=== PATIENT | female | born 1935 | race Caucasian/White ===

== ENCOUNTER 2017-07-25 19:17 | Inpatient (IN) | payer OTHER, MEDICARE ==
[~2017-07-25] VITALS: Ht 165.1 cm; Wt 66.3 kg
[~2017-07-25 19:17] MED LIST: BISA10R PR; ENOX40P SQ; HYDR-3535 PO; PERI8.6T PO; Z.0.WALKERFRONT
[2017-07-25 19:31] VITALS: BP 144/68; PULSE 67; RESP 16; TEMP 98.7; O2SAT 99
[2017-07-25] MEDS ORDERED: CALC1TAB12 PO (19:35)
[2017-07-25] MEDS ORDERED: METF500T PO (19:35)
--- NOTE | 2017-07-25 19:59 | PD ---
HPI Chief Complaint: Hip Injury Time Seen by Provider: 19:32 Travel History International Travel<30 days: No Contact w/Intl Traveler<30days: No Traveled to known affect area: No History of Present Illness HPI WHILE WALKING UP STAIRS SHE SLIPPED AND FELL FORWARD ONTO THE STAIRS, HER RIGHT HIP AREA GOT THE BRUNT OF THE LANDING. HAS HAD PAIN ON HER RIGHT HIP EVER SINCE , 02/21, WORSE WITH MOVING IT, UNABLE TO BEAR WEIGHT. NO LOC, NO SYMPTOMS OF DIZZINESS/CP/ABDPAIN/BACKPAIN/NAUSEA PRIOR TO EVENT....PT STATES SHE ESSENTIALLY MISSED STEP...PT WAS ABLE TO CALL 911 ON [address] AND BROUGHT IN BY EMS WHO STARTED IV AND PROVIDED MORPHINE 6MG IV CHART AND RN NOTES REVIEWED PMHX:CHOL, HTN, DM ALL:DENIES PFSH Past Medical History Arthritis: Yes Blood Disorders: No Cancer: No Cardiovascular Problems: No High Cholesterol: Yes Diabetes: No Diminished Hearing: No Endocrine: No Gastrointestinal Disorders: No Genitourinary: No Hepatitis: No Hiatal Hernia: No Hypertension: Yes Immune Disorder: No Implanted Vascular Access Dvce: No Medical other: Yes (HYPERCHOLESTEROLEMIA) Musculoskeletal: Yes (PELVIC FRACTURE 05/18/16) Neurologic: No Psychiatric: No Reproductive: Yes Respiratory: No Thyroid Disease: No ?: Not Past Surgical History Abdominal Surgery: No Cardiac Surgery: No Section: Yes Ear Surgery: No Endocrine Surgery: No Eye Surgery: Yes Genitourinary Surgery: No Gynecologic Surgery: No Neurologic Surgery: No Oral Surgery: No Pacemaker: No Thoracic Surgery: No Other Surgery: Yes Social History Alcohol Use: Yes (1 DAILY) Tobacco Use: No (quit 30 years ago ) Substance Use: No Allergies-Medications (Allergen,Severity, Reaction): Coded Allergies: No Known Allergies (Verified Allergy, Unknown, 07/25/17) Reported Meds & Prescriptions Reported Meds & Active Scripts Active Reported Calcium 500 +D (Calcium Carbonate-Cholecalciferol) 500-400 Mg-Unit Tab 1 Tab PO BID Metformin (Metformin HCl) 500 Mg Tab 500 Mg PO DAILY With a meal Review of Systems Except as stated in HPI: all other systems reviewed are Neg General / Constitutional: No: Fever Eyes: No: Visual changes HENT: No: Headaches Cardiovascular: No: Chest Pain or Discomfort Respiratory: No: Shortness of Breath Gastrointestinal: No: Abdominal Pain Genitourinary: No: Dysuria Musculoskeletal: Positive: Limited ROM, Pain (RT HIP PAIN) Skin: No Rash Neurologic: No: Weakness Psychiatric: No: Depression Endocrine: No: Polydipsia Hematologic/Lymphatic: No: Easy Bruising Physical Exam Narrative GENERAL: SKIN: Warm and dry. HEAD: Atraumatic. Normocephalic. EYES: Pupils equal and round. No scleral icterus. No injection or drainage. ENT: No nasal bleeding or discharge. Mucous membranes pink and moist. NECK: Trachea midline. No JVD. CARDIOVASCULAR: Regular rate and rhythm. RESPIRATORY: No accessory muscle use. Clear to auscultation. Breath sounds equal bilaterally. GASTROINTESTINAL: Abdomen soft, non-tender, nondistended. Hepatic and splenic margins not palpable. MUSCULOSKELETAL: Extremities without clubbing, cyanosis, or edema. No obvious deformities. BUT TTP ALONG LATERAL TROCHANTER AND PROXIMAL FEMUR...KNEE AND TIBFIB COMPLETELY PAIN FREE. NEUROLOGICAL: Awake and alert. No obvious cranial nerve deficits. Motor grossly within normal limits. Five out of 5 muscle strength in the arms and legs. Normal speech. PSYCHIATRIC: Appropriate mood and affect; insight and judgment normal. Data Data Last Documented VS Vital Signs Date Time Temp Pulse Resp B/P (MAP) Pulse Ox O2 Delivery O2 Flow Rate FiO2 07/25/17 19:31 98.7 67 16 144/68 (93) 99 Orders Orders Hip, Uni(Ap&Lat) W Ap Pelvis (07/25/17 19:51) Electrocardiogram (07/25/17 20:43) Complete Blood Count With Diff (07/25/17 20:43) Comprehensive Metabolic Panel (07/25/17 20:43) Prothrombin Time / Inr (Pt) (07/25/17 20:43) Act Partial Throm Time (Ptt) (07/25/17 20:43) Urinalysis - C+S If Indicated (07/25/17 20:43) Iv Access Insert/Monitor (07/25/17 20:43) Urinary Catheter Insert/Apply (07/25/17 20:43) Oximetry (07/25/17 20:43) Ecg Monitoring (07/25/17 20:43) Sodium Chloride 0.9% Flush (Ns Flush) (07/25/17 20:45) Admit Order (Ed Use Only) (07/25/17 20:57) [facility] Medical Decision Making Medical Screen Exam Complete: Yes Emergency Medical Condition: Yes Medical Record Reviewed: Yes Differential Diagnosis HIP CONTUSION V HIP FX V HIP DISLOCATION Narrative Course xray revealed rt intertrochanteric fracture which will require repair. Diagnosis Primary Impression: Intertrochanteric fracture of right hip Qualified Codes: S72.144A - Nondisplaced intertrochanteric fracture of right femur, initial encounter for closed fracture Jose Mchugh MD Jul 25, 2017 19:59
--- NOTE | 2017-07-25 20:42 | RADRPT ---
EXAM DATE/TIME: 07/25/2017 20:08 [place] COMPARISON: No previous studies available for comparison. INDICATIONS : Fall. Right hip pain. MEDICAL HISTORY : None. SURGICAL HISTORY : None. ENCOUNTER: Initial ACUITY: 1 day PAIN SCORE: 9/10 LOCATION: Right hip FINDINGS: There is a mildly displaced intertrochanteric fracture proximal right femur. No dislocation. Bones os teopenic. CONCLUSION: 1. Mildly displaced intertrochanteric fracture proximal right femur. Ortiz Gordon MD on July 25, 2017 at 20:40 Board Certified Radiologist. This report was verified electronically.
[2017-07-25] MEDS ORDERED: SODIUM CHLORIDE 0.9% FLUSH 10 ML FLUSH IVF PRN (20:45)
[2017-07-25 22:00] VITALS: BP 140/81; PULSE 58; RESP 16; O2SAT 95
[2017-07-25 22:07] LABS: AUTOMATED NEUTROPHIL # 4.4 TH/MM3 (1.8-7.7); BASOPHIL # 0.1 TH/MM3 (0-0.2); BASOPHIL % 1.1 % (0.0-2.0); EOSINOPHIL # 0.1 TH/MM3 (0-0.4); EOSINOPHIL % 1.8 % (0.0-4.0); HEMATOCRIT 35.4 % (35.0-46.0); HEMO FLAGS DIFF FINAL; LYMPH % 20.1 % (9.0-44.0); LYMPHOCYTE # 1.3 TH/MM3 (1.0-4.8); MEAN CELL VOLUME 87.3 FL (80.0-100.0); MEAN CORPUSCULAR HEMOGLOBIN 29.5 PG (27.0-34.0); MEAN CORPUSCULAR HGB CONC 33.8 % (32.0-36.0); MONO % 6.9 % (0.0-8.0); NEUT % 70.1 % (16.0-70.0); PLATELET COUNT 254 TH/MM3 (150-450); RED BLOOD COUNT 4.05 MIL/MM3 (4.00-5.30); RED CELL DISTRIBUTION WIDTH 13.9 % (11.6-17.2); WHITE BLOOD COUNT 6.3 TH/MM3 (4.0-11.0)
[2017-07-25 22:16] LABS: PROTHROMBIN TIME - PATIENT 10.5 SEC (9.8-11.6)
[2017-07-25] MEDS ORDERED: ACETAMINOPHEN 325 MG TAB PO PRN (22:30)
[2017-07-25] MEDS ORDERED: NALOXONE HCL 0.4 MG/ML AMP IV PUSH PRN (22:30)
[2017-07-25] MEDS ORDERED: SODIUM CHLORIDE 0.9% FLUSH 10 ML FLUSH IV FLUSH PRN (22:30)
[2017-07-25 22:34] LABS: ALKALINE PHOSPHATASE 53 U/L (45-117); TOTAL BILIRUBIN ADULT 0.4 MG/DL (0.2-1.0)
[2017-07-25 22:42] LABS: ALT (GPT) 18 U/L (10-53); ANION GAP 7 MEQ/L (5-15); AST (GOT) 19 U/L (15-37); BICARBONATE 25.8 MEQ/L (21.0-32.0); BLOOD UREA NITROGEN 16 MG/DL (7-18); CHLORIDE 102 MEQ/L (98-107); GLOMERULAR FILTRATION RATE 67 ML/MIN (>89); SODIUM (NA) 135 MEQ/L (136-145)
[2017-07-25 22:45] LABS: POTASSIUM 4.1 MEQ/L (3.5-5.1)
[2017-07-25] MEDS ORDERED: GLUCAGON 1 MG/ML VIAL OTHER PRN (22:45)
[2017-07-25] MEDS ORDERED: DEXTROSE 50% IN WATER 50 ML VIAL(D50) IV PUSH PRN (22:45)
--- NOTE | 2017-07-25 23:19 | HHI.HP ---
[facility] Service [facility] Primary Care Physician Lang Freire MD Admission Diagnosis RIGHT INTERTROCHANTERIC FRACTURE Diagnoses: Travel History International Travel<30 Days: No Contact w/Intl Traveler <30 Da: No Traveled to Known Affected Are: No History of Present Illness 82-year-old female with a past medical history significant for type 2 diabetes mellitus presents to the emergency department after sustaining a fall. The patient reports that she was carrying groceries when she tripped on a step going in her front door and fell onto her right hip. She denies any head trauma or loss of consciousness. Her pain is currently well controlled. She has no other complaints at this time. Review of Systems Denies fever or chills Denies blurry vision, otorrhea, rhinorrhea Denies sore throat and cough No chest pain, palpitations, shortness of breath No abdominal pain Denies constipation/diarrhea/nausea/vomiting Denies muscle pain/weakness No rashes Past Family Social History Past Medical History Type 2 diabetes mellitus Past Surgical History Right knee 2 Reported Medications Reported Meds & Active Scripts Active Reported Calcium 500 +D (Calcium Carbonate-Cholecalciferol) 500-400 Mg-Unit Tab 1 Tab PO BID Metformin (Metformin HCl) 500 Mg Tab 500 Mg PO DAILY With a meal Allergies: Coded Allergies: No Known Allergies (Verified Allergy, Unknown, 07/25/17) Family History Father with diabetes mellitus. Social History Remote history of smoking. Drinks one cocktail per day. Denies illicit drugs. Physical Exam Vital Signs Vital Signs Date Time Temp Pulse Resp B/P (MAP) Pulse Ox O2 Delivery O2 Flow Rate FiO2 07/25/17 22:00 58 16 140/81 (100) 95 Nasal Cannula 2.00 07/25/17 19:31 98.7 67 16 144/68 (93) 99 Physical Exam GENERAL: female lying in bed SKIN: No rashes, ecchymoses or lesions. Cool and dry. HEAD: Atraumatic. Normocephalic. No temporal or scalp tenderness. EYES: Pupils equal round and reactive. Extraocular motions intact. No scleral icterus. No injection or drainage. ENT: Nose without bleeding, purulent drainage or septal hematoma. Throat without erythema, tonsillar hypertrophy or exudate. Uvula midline. Airway patent. NECK: Trachea midline. No JVD or lymphadenopathy. Supple, nontender, no meningeal signs. CARDIOVASCULAR: Regular rate and rhythm without murmurs, gallops, or rubs. RESPIRATORY: Clear to auscultation. Breath sounds equal bilaterally. No wheezes , rales, or rhonchi. GASTROINTESTINAL: Abdomen soft, non-tender, nondistended. No hepato-splenomegaly , or palpable masses. No guarding. MUSCULOSKELETAL: Extremities without clubbing, cyanosis, or edema. No joint tenderness, effusion, or edema noted. No calf tenderness. Bilateral lower extremities neurovascularly intact. NEUROLOGICAL: Awake and alert. Cranial nerves II through XII intact. Motor and sensory grossly within normal limits. Normal speech. Laboratory Laboratory Tests Test 07/25/17 21:00 White Blood Count 6.3 Red Blood Count 4.05 Hemoglobin 12.0 Hematocrit 35.4 Mean Corpuscular Volume 87.3 Mean Corpuscular Hemoglobin 29.5 Mean Corpuscular Hemoglobin Concent 33.8 Red Cell Distribution Width 13.9 Platelet Count 254 Mean Platelet Volume 8.7 Neutrophils (%) (Auto) 70.1 Lymphocytes (%) (Auto) 20.1 Monocytes (%) (Auto) 6.9 Eosinophils (%) (Auto) 1.8 Basophils (%) (Auto) 1.1 Neutrophils # (Auto) 4.4 Lymphocytes # (Auto) 1.3 Monocytes # (Auto) 0.4 Eosinophils # (Auto) 0.1 Basophils # (Auto) 0.1 CBC Comment DIFF FINAL Differential Comment Prothrombin Time 10.5 Prothromb Time International Ratio 1.0 Activated Partial Thromboplast Time 28.0 Blood Urea Nitrogen 16 Creatinine 0.82 Random Glucose 92 Total Protein 6.7 Albumin 3.5 Calcium Level 8.5 Alkaline Phosphatase 53 Aspartate Amino Transf (AST/SGOT) 19 Alanine Aminotransferase (ALT/SGPT) 18 Total Bilirubin 0.4 Sodium Level 135 Potassium Level 4.1 Chloride Level 102 Carbon Dioxide Level 25.8 Anion Gap 7 Estimat Glomerular Filtration Rate 67 Result Diagram: 07/25/17209907/25/172099 Caprini VTE Risk Assessment Caprini VTE Risk Assessment: Mod/High Risk (score >= 2) Caprini Risk Assessment Model Point Value = 1 Point Value = 2 Point Value = 3 Point Value = 5 Age 41-60 Minor surgery BMI > 25 kg/m2 Swollen legs Varicose veins or History of unexplained or recurrent spontaneous Oral contraceptives or hormone replacement Sepsis (< 1 month) Serious lung disease, including pneumonia (< 1 month) Abnormal pulmonary function Acute myocardial infarction Congestive heart failure (< 1 month) History of inflammatory bowel disease Medical patient at bed rest Age 61-74 Arthroscopic surgery Major open surgery (> 45 min) Laparoscopic surgery (> 45 min) Malignancy Confined to bed (> 72 hours) Immobilizing plaster cast Central venous access Age >= 75 History of VTE Family history of VTE Factor V Leiden Prothrombin [id number] Lupus anticoagulant Anticardiolipin antibodies Elevated serum homocysteine Heparin-induced thrombocytopenia Other congenital or acquired thrombophilia Stroke (< 1 month) Elective arthroplasty Hip, pelvis, or leg fracture Acute spinal cord injury (< 1 month) Prophylaxis Regimen Total Risk Factor Score Risk Level Prophylaxis Regimen 0-1 Low Early ambulation 2 Moderate Order ONE of the following: *Sequential Compression Device (SCD) *Heparin 5000 units SQ BID 3-4 Higher Order ONE of the following medications: *Heparin 5000 units SQ TID *Enoxaparin/Lovenox 40 mg SQ daily (WT < 150 kg, CrCl > 30 mL/min) *Enoxaparin/Lovenox 30 mg SQ daily (WT < 150 kg, CrCl > 10-29 mL/min) *Enoxaparin/Lovenox 30 mg SQ BID (WT < 150 kg, CrCl > 30 mL/min) AND/OR *Sequential Compression Device (SCD) 5 or more Highest Order ONE of the following medications: *Heparin 5000 units SQ TID (Preferred with Epidurals) *Enoxaparin/Lovenox 40 mg SQ daily (WT < 150 kg, CrCl > 30 mL/min) *Enoxaparin/Lovenox 30 mg SQ daily (WT < 150 kg, CrCl > 10-29 mL/min) *Enoxaparin/Lovenox 30 mg SQ BID (WT < 150 kg, CrCl > 30 mL/min) AND *Sequential Compression Device (SCD) Assessment and Plan Assessment and Plan Assessment/plan: 1. Hip fracture X-ray significant for mildly displaced intertrochanteric fracture proximal right femur Orthopedic surgery consulted, appreciate recommendations Nothing by mouth in anticipation of operative intervention 2. Type 2 diabetes mellitus Holding home metformin SSI Monitor blood glucose FEN NPO NS at 75 cc/hr Electrolytes: monitor and replete prn Holding pharmacologic anticoagulation in anticipation of operative intervention tomorrow Case discussed with ER physician at length Physician Certification 2 Midnight Certification Type: Admission for Inpatient Services Order for Inpatient Services The services are ordered in accordance with Medicare regulations or non- Medicare payer requirements, as applicable. In the case of services not specified as inpatient-only, they are appropriately provided as inpatient services in accordance with the 2-midnight benchmark. Estimated LOS (days): 2 2 days is the estimated time the patient will need to remain in the hospital, assuming treatment plan goals are met and no additional complications. Post-Hospital Plan: Not yet determined Dahlia Marin MD Jul 25, 2017 23:19
[2017-07-26] VITALS (7 sets, daily range): BP systolic 118–159; BP diastolic 55–72; PULSE 66–70; RESP 17–18; TEMP 97.1–99; O2SAT 91–95
[2017-07-26] MEDS ORDERED: POVIDONE IODINE 5% (ANTISEPSIS KIT) 4 APPLICATIONS EACH NARE PRN (00:30)
[2017-07-26] MEDS ORDERED: LACTATED RINGER'S 1000 ML IV PRN (00:30)
[2017-07-26] MEDS ORDERED: INSULIN HUMAN REGULAR 1,000 UNITS/10 ML VIAL SQ PRN (00:30)
[2017-07-26] MEDS ORDERED: SODIUM CHLORID 0.9% 500 ML IV PRN (00:30)
[2017-07-26] MEDS ORDERED: METOPROLOL TARTRATE 25 MG TAB PO PRN (00:30)
[2017-07-26] MEDS ORDERED: CHLORHEXIDINE GLUCONATE 2 % 1 PACK (2 CLOTHS) TOPICAL PRN (00:30)
[2017-07-26] MEDS: MORPHINE SULFATE 2 MG/ML INJ IV PUSH PRN ×6 (01:35→21:00)
[2017-07-26] MEDS: SODIUM CHLOR 0.9% 1000 ML INJ 1,000 ML IV SCH ×2 (01:39→13:41)
[2017-07-26] MEDS: ONDANSETRON HCL 4 MG/2 ML VIAL IVP PRN ×2 (02:24→10:03)
[2017-07-26] MEDS: INSULIN ASPART SUPPLEMENTAL SCALE SQ SCH ×4 (08:00→20:59)
[2017-07-26] MEDS: SODIUM CHLORIDE 0.9% FLUSH 10 ML FLUSH IV FLUSH SCH ×2 (08:26→20:58)
[2017-07-26 08:38] LABS: AUTOMATED NEUTROPHIL # 5.8 TH/MM3 (1.8-7.7); BASOPHIL % 0.4 % (0.0-2.0); EOSINOPHIL % 0.6 % (0.0-4.0); HEMATOCRIT 34.6 % (35.0-46.0); HEMO FLAGS DIFF FINAL; LYMPH % 11.8 % (9.0-44.0); LYMPHOCYTE # 0.9 TH/MM3 (1.0-4.8); MEAN CELL VOLUME 86.6 FL (80.0-100.0); MEAN CORPUSCULAR HEMOGLOBIN 29.6 PG (27.0-34.0); MEAN CORPUSCULAR HGB CONC 34.1 % (32.0-36.0); NEUT % 80.2 % (16.0-70.0); PLATELET COUNT 260 TH/MM3 (150-450); RED BLOOD COUNT 3.99 MIL/MM3 (4.00-5.30); RED CELL DISTRIBUTION WIDTH 13.8 % (11.6-17.2); WHITE BLOOD COUNT 7.2 TH/MM3 (4.0-11.0)
[2017-07-26 09:03] LABS: BICARBONATE 25.9 MEQ/L (21.0-32.0)
--- NOTE | 2017-07-26 10:43 | PD.CONS ---
HPI Service Orthopedic Surgeons Consult Requested By Reason for Consult Right intertrochanteric hip fracture Primary Care Physician Lang Freire MD Admission Diagnosis RIGHT INTERTROCHANTERIC FRACTURE Diagnoses: Chief Complaint: Right hip pain History of Present Illness Patient is an 82-year-old female who presented to the emergency department after a slip and fall. Patient denies any loss of consciousness or head injury. Patient reports right hip pain but otherwise denies other extremity injury. Review of Systems Constitutional: DENIES: Fever Endocrine: DENIES: Polyuria Eyes: DENIES: Blurred vision Ears, nose, mouth, throat: DENIES: Throat pain Respiratory: DENIES: Cough Cardiovascular: DENIES: Chest pain Gastrointestinal: DENIES: Abdominal pain Genitourinary: DENIES: Urinary incontinence Musculoskeletal: COMPLAINS OF: Joint pain, Muscle aches Integumentary: DENIES: Rash Hematologic/lymphatic: DENIES: Bruising Immunologic/allergic: DENIES: Eczema Neurologic: DENIES: Abnormal gait Psychiatric: DENIES: Anxiety Past Family Social History Past Medical History Type 2 diabetes mellitus Past Surgical History Right knee 2 Reported Medications Patient cannot recall exact name but something for diabetes Allergies: Coded Allergies: No Known Allergies (Verified Allergy, Unknown, 07/25/17) Active Ordered Medications Current Medications Medications (Trade) Dose Ordered Sig/David Route Start Time Stop Time Status Last Admin (NS Flush) 2 ml UNSCH PRN IV FLUSH 07/25/17 22:30 (NS Flush) 2 ml BID IV FLUSH 07/26/17 09:00 (Tylenol) 650 mg Q4H PRN PO 07/25/17 22:30 (Zofran Inj) 4 mg Q6H PRN IVP 07/25/17 22:30 07/26/17 10:03 (Narcan Inj) 0.4 mg UNSCH PRN IV PUSH 07/25/17 22:30 (Morphine Inj) 2 mg Q3H PRN IV PUSH 07/25/17 22:30 07/26/17 09:52 (D50w (Vial) Inj) 50 ml UNSCH PRN IV PUSH 07/25/17 22:45 (Glucagon Inj) 1 mg UNSCH PRN OTHER 07/25/17 22:45 (NovoLOG SUPPLEMENTAL SCALE) 1 ACHS SLIDING SCALE SQ 07/26/17 08:00 Sodium Chloride 1,000 ml @ 75 mls/hr [id number] IV 07/25/17 23:30 07/26/17 01:39 Lactated Ringer's 1,000 ml @ 30 mls/hr Q24H PRN IV 07/26/17 00:30 07/29/17 00:29 Sodium Chloride 500 ml @ 30 mls/hr [id number] PRN IV 07/26/17 00:30 07/29/17 00:29 (Lopressor) 25 mg CLINICAL RESEARCH TECHNICIAN PRN PO 07/26/17 00:30 07/29/17 00:29 (Betadine 5% Antisepsis Kit) 1 applic CLINICAL RESEARCH TECHNICIAN PRN EACH NARE 07/26/17 00:30 07/29/17 00:29 (Chlorhexidine 2% Cloth) 3 pack CLINICAL RESEARCH TECHNICIAN PRN TOPICAL 07/26/17 00:30 07/29/17 00:29 (NovoLIN R INJ) See Protocol Table ... CLINICAL RESEARCH TECHNICIAN PRN SQ 07/26/17 00:30 07/29/17 00:29 Reported Meds & Active Scripts Active Reported Calcium 500 +D (Calcium Carbonate-Cholecalciferol) 500-400 Mg-Unit Tab 1 Tab PO BID Metformin (Metformin HCl) 500 Mg Tab 500 Mg PO DAILY With a meal Family History Father with diabetes mellitus. Social History Remote history of smoking. Drinks one cocktail per day. Denies illicit drugs. Physical Exam Vital Signs Vital Signs Date Time Temp Pulse Resp B/P (MAP) Pulse Ox O2 Delivery O2 Flow Rate FiO2 07/26/17 09:57 18 07/26/17 08:00 99.0 67 18 144/63 (90) 94 07/26/17 04:00 98.1 66 18 144/67 (92) 95 07/26/17 00:00 97.1 70 18 159/72 (101) 95 07/25/17 22:00 58 16 140/81 (100) 95 Nasal Cannula 2.00 07/25/17 19:31 98.7 67 16 144/68 (93) 99 Physical Exam Awake, alert, no acute distress Normocephalic Pupils equal Moist mucous membranes No JVD Nonlabored respirations Regular rate Soft nontender abdomen Right lower extremity: Mild tenderness to palpation about the hip with positive logroll. Unable to assess range of motion due to pain. Patient is neurovascular intact distally, positive dorsiflexion, plantar flexion, EHL and FHL. Sensation intact to light touch. Dorsalis pedis pulses palpable. Bilateral upper extremities and left lower extremity: Without tenderness to palpation or deformities. Full active range of motion and strength. Sensation intact. Radial and dorsalis pedis pulses palpable No rash Normal affect Laboratory Laboratory Tests Test 07/25/17 21:00 07/26/17 07:52 White Blood Count 6.3 7.2 Red Blood Count 4.05 3.99 Hemoglobin 12.0 11.8 Hematocrit 35.4 34.6 Mean Corpuscular Volume 87.3 86.6 Mean Corpuscular Hemoglobin 29.5 29.6 Mean Corpuscular Hemoglobin Concent 33.8 34.1 Red Cell Distribution Width 13.9 13.8 Platelet Count 254 260 Mean Platelet Volume 8.7 7.9 Neutrophils (%) (Auto) 70.1 80.2 Lymphocytes (%) (Auto) 20.1 11.8 Monocytes (%) (Auto) 6.9 7.0 Eosinophils (%) (Auto) 1.8 0.6 Basophils (%) (Auto) 1.1 0.4 Neutrophils # (Auto) 4.4 5.8 Lymphocytes # (Auto) 1.3 0.9 Monocytes # (Auto) 0.4 0.5 Eosinophils # (Auto) 0.1 0.0 Basophils # (Auto) 0.1 0.0 CBC Comment DIFF FINAL DIFF FINAL Differential Comment Prothrombin Time 10.5 Prothromb Time International Ratio 1.0 Activated Partial Thromboplast Time 28.0 Blood Urea Nitrogen 16 14 Creatinine 0.82 0.72 Random Glucose 92 113 Total Protein 6.7 Albumin 3.5 Calcium Level 8.5 8.5 Alkaline Phosphatase 53 Aspartate Amino Transf (AST/SGOT) 19 Alanine Aminotransferase (ALT/SGPT) 18 Total Bilirubin 0.4 Sodium Level 135 132 Potassium Level 4.1 4.0 Chloride Level 102 99 Carbon Dioxide Level 25.8 25.9 Anion Gap 7 7 Estimat Glomerular Filtration Rate 67 78 Result Diagram: 07/26/17 0752 07/26/17 0752 Imaging Right hip and pelvis radiographs demonstrate a mildly displaced intertrochanteric femur fracture. Assessment & Plan Assessment and Plan Patient is an 82-year-old female who presents after mechanical fall with right intertrochanteric femur fracture Options of management were discussed with the patient including nonoperative versus operative management. Given she has a hip fracture, I recommended operative intervention in the form of right intramedullary nail. Risks of surgery including but not limited to: Infection, malunion or nonunion, hardware malposition or failure, prominent hardware, possible neurovascular injury, possible need for further surgery, and other unforeseen complications were all discussed with the patient. Postoperative course were discussed with the patient including the likelihood that she could be weightbearing as tolerated with a walker immediately after surgery. She would be on anticoagulation for at least 2 weeks postop. At this time the patient has consented to the above- mentioned procedure. Patient is nothing by mouth for surgery later today. Amee Gotti MD Jul 26, 2017 10:43
--- NOTE | 2017-07-26 11:27 | HHI.PR ---
Subjective Remarks Follow-up right hip fracture/mechanical fall 07/26/17-patient seen and examined, complains of right hip pain. Currently nothing by mouth any possible repair today by orthopedic surgery Objective Vitals Vital Signs Date Time Temp Pulse Resp B/P (MAP) Pulse Ox O2 Delivery O2 Flow Rate FiO2 07/26/17 09:57 18 07/26/17 08:00 99.0 67 18 144/63 (90) 94 07/26/17 04:00 98.1 66 18 144/67 (92) 95 07/26/17 00:00 97.1 70 18 159/72 (101) 95 07/25/17 22:00 58 16 140/81 (100) 95 Nasal Cannula 2.00 07/25/17 19:31 98.7 67 16 144/68 (93) 99 I/O 07/25/17 07/25/17 07/25/17 07/26/17 07/26/17 07/26/17 07:00 15:00 23:00 07:00 15:00 23:00 Intake Total 355 ml Balance 355 ml Intake IV Total 355 ml Result Diagram: 07/26/17 0752 07/26/17 0752 Imaging Last Impressions Hip and Pelvis X-Ray 07/25/171950 Signed Impressions: Service Date/Time: Tuesday, July 25, 2017 20:08 - CONCLUSION: 1. Mildly displaced intertrochanteric fracture proximal right femur. Ortiz Gordon MD Objective Remarks GENERAL: NAD SKIN: Warm and dry. HEAD: Normocephalic. EYES: No scleral icterus. No injection or drainage. NECK: Supple, trachea midline. No JVD or lymphadenopathy. CARDIOVASCULAR: Regular rate and rhythm without murmurs, gallops, or rubs. RESPIRATORY: Breath sounds equal bilaterally. No accessory muscle use. GASTROINTESTINAL: Abdomen soft, non-tender, nondistended. MUSCULOSKELETAL: No cyanosis, or edema. Right Hip TTP BACK: Nontender without obvious deformity. No CVA tenderness. A/P Problem List: (1) Fracture of left inferior pubic ramus ICD Code: S32.592A - Other specified fracture of left pubis, initial encounter for closed fracture Status: Acute Assessment and Plan 82-year-old female with 1. Right Hip fracture X-ray significant for mildly displaced intertrochanteric fracture proximal right femur Orthopedic surgery consulted, appreciate recommendations Plan for open reduction internal fixation today Continue IV fluid hydration, parenteral pain management accordingly DVT prophylaxis per orthopedic postprocedure PT consult to treat and eval 2. Type 2 diabetes mellitus Holding home metformin Continue with SSI Zachary Blackburn MD Jul 26, 2017 11:27
--- NOTE | 2017-07-26 12:08 | EKG ---
Date Performed: 07/25/2017 Time Performed: 21:29:03 PTAGE: 82 years EKG: Normal Sinus rhythm Nonspecific T-wave abnormality PVCs Poor R-wave progression Possible anteroseptal AR vs lead placeme nt ABNORMAL ECG Compared to PREVIOUS TRACING , the PVCs are new. There is a blocked R-wave in lead V2 but this could be lead placement. PREVIOUS TRACIN01/12/2014 13.35 DOCTOR: Ike Barraza Interpretating Date/Time 07/26/2017 12:07:37
--- NOTE | 2017-07-26 16:02 | PD.OP ---
cc: Amee Gotti MD Operative Report Closed left displaced olecranon fracture Postoperative Diagnosis: Same Procedure: Open reduction internal fixation left olecranon fracture Surgeon: Amee Gotti Tunnel Man(s): None Operation and Findings: Anesthesia: Mac with nerve block Estimated blood loss: 50 cc Complications: None Specimens: None Indications for procedure: Patient is an 82-year-old female presents to my clinic one week after a slip and fall with left elbow pain. Patient was found to have an olecranon fracture at [place] emergency department splinted and discharged. Patient followed up in my clinic with a completely displaced olecranon fracture. Options of management were discussed with the patient. I recommended operative intervention in the form of open reduction internal fixation of her left olecranon fracture. Risks of surgery including but not limited to: Infection, nonunion or malunion, hardware malposition or failure, elbow stiffness and pain, neurovascular injury, and other unforeseen complications were all discussed with the patient. At this time she consented to procedure. I did discuss with her my concern given she is on oral chemotherapy that she is at significantly higher risk for nonunion and/or infection. Description of procedure: Patient was brought back to the operating room placed supine on operating table. MAC anesthesia was performed along with a nerve block. Patient was turned to a lateral position on a beanbag with all bony prominences well-padded. Patient was prepped and draped in standard sterile fashion. Preoperative antibiotics were given in the form of Ancef and vancomycin. A timeout was performed to identify the correct patient, side, site and procedure to be performed. A posterior based incision over the olecranon was performed with sharp dissection through the skin and subcutaneous tissue down to bone. Immediately hematoma was encountered with a significant gap between the 2 fracture fragments. The fracture fragments were thoroughly cleaned from hematoma and reduced with the help of a K wire. A Synthes locking olecranon plate was then placed and reduction was verified under AP and lateral fluoroscopy. Proximal and distal locking and nonlocking screws were then placed. Final radiographs demonstrated acceptable fracture reduction and hardware in good position without evidence of penetration of the joint line. Patient had full passive range of motion of the elbow without crepitus. The wound was thoroughly irrigated with normal saline laden with gentamicin. 1 g of vancomycin powder was then placed and the wound given my concern for infection with her oral chemotherapy. Patient was then closed with antibiotic coated Vicryl and nylon suture. Patient was placed in a posterior splint, well- padded. Patient was then awoken from her anesthesia without complication and transferred to the postoperative room. Disposition: Patient will be nonweightbearing to left upper extremity in a splint and sling. I have asked patient follow-up in approximately 10-14 days at which point likely she will be taken out of the splint and allowed to start gentle range of motion. Amee Gotti MD Jul 26, 2017 16:02
[2017-07-26] MEDS ORDERED: HYDR-4107 PO (16:06)
[2017-07-26] MEDS ORDERED: diphenhydrAMINE HCL 25 MG CAP PO PRN (16:15)
[2017-07-26] MEDS ORDERED: ACETAMINOPHEN/HYDROcodone 325 MG/5 MG TAB PO PRN ×2 (16:15)
[2017-07-26] MEDS ORDERED: Post-op Orders (for Pharmacy) XX ONE (16:15)
[2017-07-26] MEDS ORDERED: MORPHINE SULFATE 8 MG/ML INJ IV PUSH PRN (16:15)
[2017-07-26] MEDS ORDERED: SODIUM CHLORIDE 0.9% FLUSH 10 ML FLUSH IV FLUSH PRN (16:15)
[2017-07-26] MEDS ORDERED: BISACODYL 10 MG SUPP RECTAL PRN (16:15)
[2017-07-26] MEDS ORDERED: MAGNESIUM HYDROXIDE SUSP 30 ML CUP PO PRN (16:15)
[2017-07-26] MEDS ORDERED: SENNOSIDES 8.6 MG TAB PO PRN (16:15)
[2017-07-26] MEDS ORDERED: ONDANSETRON HCL 4 MG/2 ML VIAL IVP PRN (16:15)
[2017-07-26] MEDS ORDERED: LACTULOSE SYRUP 20 GM/30 ML CUP PO PRN (16:15)
[2017-07-26] MEDS ORDERED: DOCUSATE SODIUM 50 MG/SENNA 8.6 MG TAB PO SCH (21:00)
[2017-07-26] MEDS ORDERED: SODIUM CHLORIDE 0.9% FLUSH 10 ML FLUSH IV FLUSH SCH (21:00)
[2017-07-27] MEDS: SODIUM CHLOR 0.9% 1000 ML INJ 1,000 ML IV SCH ×2 (02:35→15:30)
[2017-07-27 03:30] VITALS: BP 138/62; PULSE 69; RESP 18; TEMP 98; O2SAT 93
[2017-07-27] MEDS: MORPHINE SULFATE 2 MG/ML INJ IV PUSH PRN (03:34)
--- NOTE | 2017-07-27 06:50 | PD.ORT.PN ---
Subjective Subjective Remarks Fell Tuesday night when coming back into house after coming back from [facility] with groceries in hand. Fell and had right hip pain. Was unable to ambulate. Objective Vitals Vital Signs Date Time Temp Pulse Resp B/P (MAP) Pulse Ox O2 Delivery O2 Flow Rate FiO2 07/27/17 03:30 98.0 69 18 138/62 (87) 93 07/26/17 23:25 98.6 68 17 135/60 (85) 93 07/26/17 19:23 98.5 68 17 141/61 (87) 93 07/26/17 17:00 18 07/26/17 16:01 98.8 68 18 118/55 (76) 91 07/26/17 11:58 98.7 67 18 152/64 (93) 94 07/26/17 08:00 99.0 67 18 144/63 (90) 94 I/O 07/26/17 07/26/17 07/26/17 07/27/17 07/27/17 07/27/17 07:00 15:00 23:00 07:00 15:00 23:00 Intake Total 355 ml 0 ml 240 ml Output Total 800 ml 300 ml Balance 355 ml -800 ml -60 ml Intake Oral 0 ml 240 ml IV Total 355 ml Output Urine Total 800 ml 300 ml # Bowel Movements 0 0 Result Diagram: 07/26/17 0752 07/26/17 0752 Imaging Last 72 hours Impressions Hip and Pelvis X-Ray 07/25/171950 Signed Impressions: Service Date/Time: Tuesday, July 25, 2017 20:08 - CONCLUSION: 1. Mildly displaced intertrochanteric fracture proximal right femur. Ortiz Gordon MD Objective Remarks Bilateral upper extremities: Full range of motion neurovascular intact Left lower extremity: Full range of motion and neurovascularly intact. Right lower extremity: Pain to palpation of hip and any movement. She has mild tenderness to palpation of her knee. Distally she has intact sensation good capillary refills. She has active dorsiflexion plantar flexion of foot Assessment & Plan Assessment and Plan Right intertrochanteric femur fracture Surgery this morning with Dr. Lyles Nothing by mouth Sign consents Twin Cazares Jr. Jul 27, 2017 06:50
[2017-07-27] MEDS ORDERED: VANCOMYCIN HCL 1000 MG VIAL ONE (07:08)
[2017-07-27] MEDS ORDERED: SODIUM CHLOR 0.9% 250 ML INJ 250 ML ONE (07:08)
[2017-07-27] MEDS ORDERED: BUPIVACAINE/EPINEPHRINE 0.25% PF 10 ML VIAL ONE (07:08)
[2017-07-27] MEDS ORDERED: GENTAMICIN SULFATE 80 MG/2 ML VIAL ONE (07:10)
--- NOTE | 2017-07-27 07:22 | PD.OP ---
cc: David Lyles MD Operative Report Date of Surgery: Jul 27, 2017 Preoperative Diagnosis: Right hip intertrochanteric fracture Postoperative Diagnosis: Procedure: Right hip reduction and intramedullary nail fixation Anesthesia: Gen. Surgeon: David Lyles Electrician Station Assistant(s): SYLVIE Duong PA-C The surgical procedure was assisted by my physician certified surgical tech/first assistant. My P.A. presence was necessary throughout this case for the manipulation and positioning of the surgical extremity. My P.A. was assisting me throughout the duration of this procedure. The skill set of a physician certified surgical tech/first assistant was medically necessary to complete this procedure. During the surgical case the surgical processor was working at the back table and the physician certified surgical tech/first assistant was directly assisting me. Operation and Findings: Implants used: []mm Synthes TFNA short troch nail Plan of activity: Weight-bear as tolerated Patient was seen and evaluated preoperatively. The patient has significant hip pain from intertrochanteric hip fracture. The risk and benefits of surgery were discussed in depth with the patient to include bleeding infection nonunion malunion and need for hip replacement painful hardware as well as medical competitions including but not stroke heart attack and . Informed consent was obtained. Operative site was marked. Patient was brought to the operating room and placed on fracture table. IV sedation was administered by anesthesiologist. Timeout procedure was performed. Hip and leg were prepped with alcohol followed by DuraPrep and draped in the usual sterile fashion. IV antibiotics were given prior to incision. Procedure began with reduction of fracture. Traction was applied. The leg was manipulated to achieve reduction. Excellent reduction was achieved. Fluoroscopy was used to confirm reduction. A three inch incision was made proximal to the trochanter. Subcutaneous tissue was dissected bluntly. Guidepin was placed at the tip of the trochanter and advanced into the femoral canal. Fluoroscopy confirmed appropriate guidepin placement. A opening reamer was placed over the guidepin. The Synthes TFNA nail was attached to the insertion handle. Nail was now placed through the tip of the trochanter into the femoral canal. Fluoroscopy confirmed appropriate nail placement. A second incision was made over the lateral thigh. Cannulas were placed through the insertion handle down to the femur. Guidepin was now placed through the femoral nail into the center of the femoral head. Fluoroscopy confirmed appropriate guidepin placement. Screw length was measured. Cannulated drill was placed over the guidepin. Appropriate length lag screw was now placed. Traction was released and compression was applied. The set screw was now tightened in dynamic mode. Using the insertion handle as a guide a distal interlocking screw was drilled and placed. Final fluoroscopy revealed well aligned fracture with well-placed hardware. Incision was closed with 3-0 Vicryl and cornel. Sterile dressings were applied. Patient was awakened and transferred to recovery room. David Lyles MD Jul 27, 2017 07:22
[2017-07-27] MEDS ORDERED: ceFAZolin INJ 1,000 MG VIAL ONE (07:24)
[2017-07-27] MEDS ORDERED: ERGOCALCIFEROL (VIT D2) 50,000 UNIT CAP PO ONE (07:30)
[2017-07-27] MEDS ORDERED: diphenhydrAMINE HCL 25 MG CAP PO PRN (07:30)
[2017-07-27] MEDS ORDERED: WALKER/ADULT/FO1 MIS (07:42)
[2017-07-27] MEDS ORDERED: CALCTAB19 PO (07:42)
[2017-07-27] MEDS ORDERED: ASPI-183 PO (07:42)
[2017-07-27] MEDS ORDERED: XARE10TA PO (07:42)
[2017-07-27] MEDS ORDERED: NORC5TAB PO ×2 (07:53→08:12)
--- NOTE | 2017-07-27 08:21 | RADRPT ---
EXAM DATE/TIME: 07/27/2017 08:01 [facility] COMPARISON: HIP RIGHT (AP&LAT 2/3VWS) W AP PELVIS, July 25, 2017, 20:08. INDICATIONS : Right hip pinning, IM nail. MEDICAL HISTORY : None. SURGICAL HISTORY : None. ENCOUNTER: Initial ACUITY: 1 day PAIN SCORE: Non-responsive. LOCATION: Right hip CONCLUSION: Fluoroscopic images during placement of dynamic compression pin right proximal femur/hip. Zachary Baires MD on July 27, 2017 at 8:19 Board Certified Radiologist. This report was verified electronically.
[2017-07-27] MEDS: INSULIN ASPART SUPPLEMENTAL SCALE SQ SCH ×4 (08:39→20:43)
[2017-07-27] MEDS ORDERED: MORPHINE SULFATE 4 MG/ML INJ ONE ×2 (08:51→09:05)
[2017-07-27 09:45] VITALS: BP 137/65; PULSE 76; RESP 18; TEMP 97; O2SAT 96
[2017-07-27] MEDS: SODIUM CHLORIDE 0.9% FLUSH 10 ML FLUSH IV FLUSH SCH ×2 (10:00→21:00)
[2017-07-27] MEDS ORDERED: DO NOT ADM ANY ANTICOAGULANT DRUGS PRN (10:30)
[2017-07-27] MEDS ORDERED: DEXTROSE 50% IN WATER 50 ML VIAL(D50) IV ONE (10:30)
[2017-07-27 12:00] VITALS: BP 137/85; PULSE 68; RESP 18; TEMP 97.3; O2SAT 96
--- NOTE | 2017-07-27 13:19 | HHI.PR ---
Subjective Remarks Follow-up right hip fracture/mechanical fall 07/26/17-patient seen and examined, complains of right hip pain. Currently nothing by mouth any possible repair today by orthopedic surgery -patient seen and examined, she is status post Right hip reduction and intramedullary nail fixation. Denies any chest pain or shortness of breath. Objective Vitals Vital Signs Date Time Temp Pulse Resp B/P (MAP) Pulse Ox O2 Delivery O2 Flow Rate FiO2 07/27/17 12:00 97.3 68 18 137/85 (102) 96 07/27/17 09:45 97.0 76 18 137/65 (89) 96 07/27/17 09:30 97.8 70 12 155/67 (96) 98 Nasal Cannula 2 07/27/17 09:15 71 13 149/64 (92) 97 Nasal Cannula 2 07/27/17 09:00 72 13 145/65 (91) 96 Nasal Cannula 2 07/27/17 08:45 71 18 158/68 (98) 95 Nasal Cannula 2 07/27/17 08:30 76 13 140/66 (90) 96 Nasal Cannula 2 07/27/17 08:27 98.9 75 12 147/67 (93) 98 Nasal Cannula 2 07/27/17 03:30 98.0 69 18 138/62 (87) 93 07/26/17 23:25 98.6 68 17 135/60 (85) 93 07/26/17 19:23 98.5 68 17 141/61 (87) 93 07/26/17 17:00 18 07/26/17 16:01 98.8 68 18 118/55 (76) 91 I/O 07/26/17 07/26/17 07/26/17 07/27/17 07/27/17 07/27/17 07:00 15:00 23:00 07:00 15:00 23:00 Intake Total 355 ml 0 ml 240 ml 0 ml 820 ml Output Total 800 ml 300 ml 250 ml 320 ml Balance 355 ml -800 ml -60 ml -250 ml 500 ml Intake Oral 0 ml 240 ml 0 ml 20 ml IV Total 355 ml 50 ml Other 750 ml Output Urine Total 800 ml 300 ml 250 ml 270 ml Estimated Blood Loss 50 ml # Bowel Movements 0 0 0 Result Diagram: 07/26/17 0752 07/26/17 075 Objective Remarks GENERAL: NAD SKIN: Warm and dry. HEAD: Normocephalic. EYES: No scleral icterus. No injection or drainage. NECK: Supple, trachea midline. No JVD or lymphadenopathy. CARDIOVASCULAR: Regular rate and rhythm without murmurs, gallops, or rubs. RESPIRATORY: Breath sounds equal bilaterally. No accessory muscle use. GASTROINTESTINAL: Abdomen soft, non-tender, nondistended. MUSCULOSKELETAL: No cyanosis, or edema. Right Hip repair-neurovascular intact BACK: Nontender without obvious deformity. No CVA tenderness. Procedures Right hip reduction and intramedullary nail fixation 07/27/17 Open reduction internal fixation left olecranon fracture 07/26/17 A/P Problem List: (1) Fracture of left inferior pubic ramus ICD Code: S32.592A - Other specified fracture of left pubis, initial encounter for closed fracture Status: Acute Assessment and Plan 82-year-old female with 1. Right Hip fracture X-ray significant for mildly displaced intertrochanteric fracture proximal right femur Orthopedic surgery consulted, appreciate recommendations s/p Right hip reduction and intramedullary nail fixation 07/27/17 s/p Open reduction internal fixation left olecranon fracture 07/26/17 Continue parenteral pain management accordingly DVT prophylaxis per orthopedic postprocedure PT to treat and eval 2. Type 2 diabetes mellitus Continue to Hold home metformin Continue with SSI DVT prophylaxis: Lovenox 30mg SQ Zachary Blackburn MD Jul 27, 2017 13:19
[2017-07-27 16:00] VITALS: BP 116/62; PULSE 72; RESP 18; TEMP 95.9; O2SAT 96
[2017-07-27] MEDS: ACETAMINOPHEN/HYDROcodone 325 MG/7.5 MG TAB PO PRN (18:59)
[2017-07-27 19:30] VITALS: BP 142/60; PULSE 64; RESP 17; TEMP 97; O2SAT 93
[2017-07-27 19:58] VITALS: O2SAT 93
[2017-07-28] VITALS (8 sets, daily range): BP systolic 113–145; BP diastolic 56–68; PULSE 63–87; RESP 18–19; TEMP 96.2–99.7; O2SAT 92–96
[2017-07-28] MEDS: ACETAMINOPHEN/HYDROcodone 325 MG/7.5 MG TAB PO PRN ×3 (05:28→18:36)
[2017-07-28] MEDS: ENOXAPARIN SODIUM 30 MG/0.3 ML SYRINGE SQ SCH (07:22)
--- NOTE | 2017-07-28 07:40 | PD.ORT.PN ---
Subjective Subjective Remarks POD 1 s/p IMN right intertroch hip fx reports pain. out of bed with therapy yesterday Objective Vitals Vital Signs Date Time Temp Pulse Resp B/P (MAP) Pulse Ox O2 Delivery O2 Flow Rate FiO2 07/28/17 04:00 97.7 85 19 121/56 (77) 96 07/28/17 00:00 99.7 63 18 117/58 (77) 93 07/27/17 19:58 93 21 07/27/17 19:30 97.0 64 17 142/60 (87) 93 07/27/17 16:00 95.9 72 18 116/62 (80) 96 07/27/17 12:00 97.3 68 18 137/85 (102) 96 07/27/17 09:45 97.0 76 18 137/65 (89) 96 07/27/17 09:30 97.8 70 12 155/67 (96) 98 Nasal Cannula 2 07/27/17 09:15 71 13 149/64 (92) 97 Nasal Cannula 2 07/27/17 09:00 72 13 145/65 (91) 96 Nasal Cannula 2 07/27/17 08:45 71 18 158/68 (98) 95 Nasal Cannula 2 07/27/17 08:30 76 13 140/66 (90) 96 Nasal Cannula 2 07/27/17 08:27 98.9 75 12 147/67 (93) 98 Nasal Cannula 2 I/O 07/27/17 07/27/17 07/27/17 07/28/17 07/28/17 07/28/17 07:00 15:00 23:00 07:00 15:00 23:00 Intake Total 0 ml 1060 ml 240 ml 380 ml Output Total 250 ml 470 ml 375 ml 1600 ml Balance -250 ml 590 ml -135 ml -1220 ml Intake Oral 0 ml 260 ml 240 ml 280 ml IV Total 50 ml 100 ml Other 750 ml Output Urine Total 250 ml 420 ml 375 ml 1600 ml Estimated Blood Loss 50 ml # Bowel Movements 0 0 0 0 Result Diagram: 07/26/17 07507/26/17 075 Imaging Last 72 hours Impressions Hip and Pelvis X-Ray 07/25/171950 Signed Impressions: Service Date/Time: Tuesday, July 25, 2017 20:08 - CONCLUSION: 1. Mildly displaced intertrochanteric fracture proximal right femur. Ortiz Gordon MD Objective Remarks RLE: dressings clean and dry. intact. NVI. neg camila Assessment & Plan Assessment and Plan 1) Right intertrochanteric femur fracture s/p IMN - POD 1 -WBAT -daily dressing changes POD 2 -Lovenox for DVT prophylaxis -pain control -work with PT -will likely need DC to rehab facility. CM to assist -f/u with Zabrina or PA in 2 weeks Lincoln Bowen/Lesson Instructor PA Jul 28, 2017 07:40
[2017-07-28] MEDS: INSULIN ASPART SUPPLEMENTAL SCALE SQ SCH ×4 (08:00→21:00)
[2017-07-28] MEDS: CHOLECALCIFEROL (VIT D3) 5000 UNIT CAP PO SCH (08:03)
[2017-07-28] MEDS: SODIUM CHLORIDE 0.9% FLUSH 10 ML FLUSH IV FLUSH SCH ×2 (08:06→22:17)
[2017-07-28 09:20] LABS: HEMATOCRIT 31.1 % (35.0-46.0); REVIEW FLAG FINAL
--- NOTE | 2017-07-28 10:13 | HHI.PR ---
Subjective Remarks Follow-up right hip fracture/mechanical fall 07/26/17-patient seen and examined, complains of right hip pain. Currently nothing by mouth any possible repair today by orthopedic surgery 07/27/17-patient seen and examined, she is status post Right hip reduction and intramedullary nail fixation. Denies any chest pain or shortness of breath. 07/28/17-patient seen and examined, complains of right lower extremity soreness Objective Vitals Vital Signs Date Time Temp Pulse Resp B/P (MAP) Pulse Ox O2 Delivery O2 Flow Rate FiO2 07/28/17 08:00 96.3 70 18 121/57 (78) 93 07/28/17 04:00 97.7 85 19 121/56 (77) 96 07/28/17 00:00 99.7 63 18 117/58 (77) 93 07/27/17 19:58 93 21 07/27/17 19:30 97.0 64 17 142/60 (87) 93 07/27/17 16:00 95.9 72 18 116/62 (80) 96 07/27/17 12:00 97.3 68 18 137/85 (102) 96 I/O 07/27/17 07/27/17 07/27/17 07/28/17 07/28/17 07/28/17 07:00 15:00 23:00 07:00 15:00 23:00 Intake Total 0 ml 1060 ml 240 ml 380 ml Output Total 250 ml 470 ml 375 ml 1600 ml Balance -250 ml 590 ml -135 ml -1220 ml Intake Oral 0 ml 260 ml 240 ml 280 ml IV Total 50 ml 100 ml Other 750 ml Output Urine Total 250 ml 420 ml 375 ml 1600 ml Estimated Blood Loss 50 ml # Bowel Movements 0 0 0 0 Result Diagram: 07/28/17 0809 07/26/17 0752 Objective Remarks GENERAL: NAD SKIN: Warm and dry. HEAD: Normocephalic. EYES: No scleral icterus. No injection or drainage. NECK: Supple, trachea midline. No JVD or lymphadenopathy. CARDIOVASCULAR: Regular rate and rhythm without murmurs, gallops, or rubs. RESPIRATORY: Breath sounds equal bilaterally. No accessory muscle use. GASTROINTESTINAL: Abdomen soft, non-tender, nondistended. MUSCULOSKELETAL: No cyanosis, or edema. Right Hip repair-neurovascular intact BACK: Nontender without obvious deformity. No CVA tenderness. Procedures Right hip reduction and intramedullary nail fixation 07/27/17 Open reduction internal fixation left olecranon fracture 07/26/17 A/P Problem List: (1) Fracture of left inferior pubic ramus ICD Code: S32.592A - Other specified fracture of left pubis, initial encounter for closed fracture Status: Acute Assessment and Plan 82-year-old female with 1. Right Hip fracture X-ray significant for mildly displaced intertrochanteric fracture proximal right femur Orthopedic surgery consulted, appreciate recommendations s/p Right hip reduction and intramedullary nail fixation 07/27/17 s/p Open reduction internal fixation left olecranon fracture 07/26/17 Continue parenteral pain management accordingly DVT prophylaxis per orthopedic postprocedure PT to treat and eval 2. Type 2 diabetes mellitus Continue to Hold home metformin Continue with SSI DVT prophylaxis: Lovenox 30mg SQ Zachary Blackburn MD Jul 28, 2017 10:13
[2017-07-28] MEDS: SODIUM CHLOR 0.9% 1000 ML INJ 1,000 ML IV SCH (10:47)
[2017-07-29] VITALS: BP 141/62; PULSE 70; RESP 18; TEMP 98.3; O2SAT 95
[2017-07-29 04:00] VITALS: BP 147/67; PULSE 72; RESP 18; TEMP 98.7; O2SAT 94
[2017-07-29] MEDS: ACETAMINOPHEN/HYDROcodone 325 MG/7.5 MG TAB PO PRN (05:39)
[2017-07-29] MEDS: ENOXAPARIN SODIUM 30 MG/0.3 ML SYRINGE SQ SCH (06:32)
[2017-07-29] MEDS: SODIUM CHLOR 0.9% 1000 ML INJ 1,000 ML IV SCH (07:30)
[2017-07-29 08:00] VITALS: BP 149/66; PULSE 65; RESP 20; TEMP 98.4; O2SAT 92
[2017-07-29] MEDS: INSULIN ASPART SUPPLEMENTAL SCALE SQ SCH ×3 (08:00→17:00)
[2017-07-29] MEDS ORDERED: LACTULOSE SYRUP 20 GM/30 ML CUP PO PRN (08:30)
[2017-07-29] MEDS: SODIUM CHLORIDE 0.9% FLUSH 10 ML FLUSH IV FLUSH SCH (08:44)
[2017-07-29] MEDS: CHOLECALCIFEROL (VIT D3) 5000 UNIT CAP PO SCH (08:44)
[2017-07-29] MEDS ORDERED: MAGNESIUM HYDROXIDE SUSP 30 ML CUP PO SCH (09:00)
--- NOTE | 2017-07-29 09:19 | PD.ORT.PN ---
Subjective Subjective Remarks Pain control with no new complaints Objective Vitals Vital Signs Date Time Temp Pulse Resp B/P (MAP) Pulse Ox O2 Delivery O2 Flow Rate FiO2 07/29/17 08:00 98.4 65 20 149/66 (93) 92 07/29/17 04:00 98.7 72 18 147/67 (93) 94 07/29/17 00:00 98.3 70 18 141/62 (88) 95 07/28/17 21:40 98.3 87 18 131/62 (85) 94 07/28/17 20:13 94 21 07/28/17 16:00 96.2 83 18 145/68 (93) 94 07/28/17 12:00 96.7 68 18 113/56 (75) 92 07/28/17 10:15 93 I/O 07/28/17 07/28/17 07/28/17 07/29/17 07/29/17 07/29/17 07:00 15:00 23:00 07:00 15:00 23:00 Intake Total 380 ml 121 ml 600 ml 420 ml Output Total 1600 ml 400 ml 1000 ml Balance -1220 ml 121 ml 200 ml -580 ml Intake Oral 280 ml 600 ml 420 ml IV Total 100 ml 121 ml Output Urine Total 1600 ml 400 ml 1000 ml # Voids 1 # Bowel Movements 0 0 0 Result Diagram: 07/28/17 0809 07/26/17 0752 Imaging Last 72 hours Impressions Hip and Pelvis X-Ray 07/25/171950 Signed Impressions: Service Date/Time: Tuesday, July 25, 2017 20:08 - CONCLUSION: 1. Mildly displaced intertrochanteric fracture proximal right femur. Ortiz Gordon MD Objective Remarks RLE: dressings clean and dry. intact. NVI. neg camila Assessment & Plan Assessment and Plan 1) Right intertrochanteric femur fracture s/p IMN - POD 2 -WBAT -daily dressing changes -Lovenox for DVT prophylaxis -pain control -work with PT -Orthopedically cleared for discharge to rehabilitation -f/u with Zabrina or LAZARO in 2 weeks Twin Cazares Jr. Jul 29, 2017 09:19
--- NOTE | 2017-07-29 11:10 | HHI.PR ---
Subjective Remarks Follow-up right hip fracture/mechanical fall 07/26/17-patient seen and examined, complains of right hip pain. Currently nothing by mouth any possible repair today by orthopedic surgery 07/27/17-patient seen and examined, she is status post Right hip reduction and intramedullary nail fixation. Denies any chest pain or shortness of breath. 07/28/17-patient seen and examined, complains of right lower extremity soreness 07/29/17-patient seen and examined, pain to right lower extremity control. States, she has not much appetite however denies any nausea or vomiting. Currently afebrile. Objective Vitals Vital Signs Date Time Temp Pulse Resp B/P (MAP) Pulse Ox O2 Delivery O2 Flow Rate FiO2 07/29/17 08:00 98.4 65 20 149/66 (93) 92 07/29/17 04:00 98.7 72 18 147/67 (93) 94 07/29/17 00:00 98.3 70 18 141/62 (88) 95 07/28/17 21:40 98.3 87 18 131/62 (85) 94 07/28/17 20:13 94 21 07/28/17 16:00 96.2 83 18 145/68 (93) 94 07/28/17 12:00 96.7 68 18 113/56 (75) 92 I/O 07/28/17 07/28/17 07/28/17 07/29/17 07/29/17 07/29/17 07:00 15:00 23:00 07:00 15:00 23:00 Intake Total 380 ml 121 ml 600 ml 420 ml Output Total 1600 ml 400 ml 1000 ml Balance -1220 ml 121 ml 200 ml -580 ml Intake Oral 280 ml 600 ml 420 ml IV Total 100 ml 121 ml Output Urine Total 1600 ml 400 ml 1000 ml # Voids 1 # Bowel Movements 0 0 0 Result Diagram: 07/28/17 0809 07/26/17 0752 Imaging Last Impressions Hip X-Ray 07/27/17 0000 Signed Impressions: Service Date/Time: Thursday, July 27, 2017 08:01 - CONCLUSION: Fluoroscopic images during placement of dynamic compression pin right proximal femur/hip. Zachary Baires MD Hip and Pelvis X-Ray 07/25/17 1951 Signed Impressions: Service Date/Time: Tuesday, July 25, 2017 20:08 - CONCLUSION: 1. Mildly displaced intertrochanteric fracture proximal right femur. Ortiz Gordon MD Objective Remarks GENERAL: NAD SKIN: Warm and dry. HEAD: Normocephalic. EYES: No scleral icterus. No injection or drainage. NECK: Supple, trachea midline. No JVD or lymphadenopathy. CARDIOVASCULAR: Regular rate and rhythm without murmurs, gallops, or rubs. RESPIRATORY: Breath sounds equal bilaterally. No accessory muscle use. GASTROINTESTINAL: Abdomen soft, non-tender, nondistended. MUSCULOSKELETAL: No cyanosis, or edema. Right Hip repair-neurovascular intact BACK: Nontender without obvious deformity. No CVA tenderness. Procedures Right hip reduction and intramedullary nail fixation 07/27/17 Open reduction internal fixation left olecranon fracture 07/26/17 A/P Problem List: (1) Fracture of left inferior pubic ramus ICD Code: S32.592A - Other specified fracture of left pubis, initial encounter for closed fracture Status: Acute Assessment and Plan 82-year-old female with 1. Right Hip fracture X-ray significant for mildly displaced intertrochanteric fracture proximal right femur Orthopedic surgery consulted, appreciate recommendations s/p Right hip reduction and intramedullary nail fixation 07/27/17 s/p Open reduction internal fixation left olecranon fracture 07/26/17 Continue parenteral pain management accordingly DVT prophylaxis per orthopedic postprocedure PT to treat and eval 2. Type 2 diabetes mellitus Resume home metformin Continue with SSI DVT prophylaxis: Lovenox 30mg SQ Discharge Planning Discharge to rehabilitation Zachary Blackburn MD Jul 29, 2017 11:10
--- NOTE | 2017-07-29 11:13 | HHI.DS ---
Discharge Summary Admission Date Jul 25, 2017 at 20:59 Discharge Date: Jul 29, 2017 Admitting Diagnosis RIGHT INTERTROCHANTERIC FRACTURE (1) Fracture of left inferior pubic ramus ICD Code: S32.592A - Other specified fracture of left pubis, initial encounter for closed fracture Status: Acute Procedures Right hip reduction and intramedullary nail fixation 07/27/17 Open reduction internal fixation left olecranon fracture 07/26/17 Brief History - From Admission 82-year-old female with a past medical history significant for type 2 diabetes mellitus presents to the emergency department after sustaining a fall. The patient reports that she was carrying groceries when she tripped on a step going in her front door and fell onto her right hip. She denies any head trauma or loss of consciousness. Her pain is currently well controlled. She has no other complaints at this time. CBC/BMP: 07/28/17 0809 07/26/17 0752 Significant Findings Laboratory Tests Test 07/27/17 11:04 07/28/17 08:09 25-Hydroxy Vitamin D Total 16.3 ng/ML (30-100) Hemoglobin 10.4 GM/DL (11.6-15.3) Hematocrit 31.1 % (35.0-46.0) Imaging Last Impressions Hip X-Ray 07/27/17 0000 Signed Impressions: Service Date/Time: Thursday, July 27, 2017 08:01 - CONCLUSION: Fluoroscopic images during placement of dynamic compression pin right proximal femur/hip. Zachary Baires MD Hip and Pelvis X-Ray 07/25/17 1951 Signed Impressions: Service Date/Time: Tuesday, July 25, 2017 20:08 - CONCLUSION: 1. Mildly displaced intertrochanteric fracture proximal right femur. Ortiz Gordon MD PE at Discharge GENERAL: NAD SKIN: Warm and dry. HEAD: Normocephalic. EYES: No scleral icterus. No injection or drainage. NECK: Supple, trachea midline. No JVD or lymphadenopathy. CARDIOVASCULAR: Regular rate and rhythm without murmurs, gallops, or rubs. RESPIRATORY: Breath sounds equal bilaterally. No accessory muscle use. GASTROINTESTINAL: Abdomen soft, non-tender, nondistended. MUSCULOSKELETAL: No cyanosis, or edema. Right Hip repair-neurovascular intact BACK: Nontender without obvious deformity. No CVA tenderness. Hospital Course Patient was admitted secondary to Right Hip fracture for which orthopedic surgery was consulted and she underwent initially Open reduction internal fixation left olecranon fracture 07/26/17 followed by Right hip reduction and intramedullary nail fixation 07/27/17. Pain management was provided accordingly and physical therapy was consulted postoperatively. DVT prophylaxis with Lovenox was provided. Patient was initially placed on sliding scale insulin however she will resume her metformin upon discharge. Prior to discharge, patient's condition improved vital remained stable. Pt Condition on Discharge: Stable Discharge Disposition: Discharge Home Discharge Time: > 30 minutes Discharge Instructions DIET: Follow Instructions for: As Tolerated, No Restrictions, Diabetic Diet Activities you can perform: Non Weight Bearing Follow up Referrals: Orthopedics - 2 Weeks @ [facility] with David Gerber MD PCP Follow-up - 2-3 Days New Medications: Aspirin (Aspirin) 325 Mg Tab 325 MG PO DAILY for blood clot prevention, #14 TAB 0 Refills Calcium Carbonate-Vitamin D (Calcium 600+D 200) 600-200 Mg-Unit Tab 1 TAB PO BID for Nutritional Supplement for 30 Days, #60 TAB 0 Refills Hydrocodone-Acetaminophen ([place]) 5 Mg-325 Mg Tab 1 TAB PO Q4H PRN for PAIN, #60 TAB 0 Refills Hydrocodone-Acetaminophen ([place]) 5 Mg-325 Mg Tab 1 TAB PO Q4H PRN for PAIN, #50 TAB 0 Refills Rivaroxaban (Xarelto) 10 Mg Tab 10 MG PO DAILY for Blood Clot Prevention for 14 Days, #14 TAB 0 Refills Walker/Adult/Folding (Walker/Adult/Folding) 1 Mis Mis EA .ROUTE DIRECTED, #1 0 Refills Continued Medications: Calcium Carbonate-Cholecalciferol (Calcium 500 +D) 500-400 Mg-Unit Tab 1 TAB PO BID for Calcium Supplement, TAB 0 Refills Metformin (Metformin) 500 Mg Tab 500 MG PO DAILY for Blood Sugar Management, #30 TAB 0 Refills With a meal Zachary Blackburn MD Jul 29, 2017 11:13
[2017-07-29 12:00] VITALS: BP 138/61; PULSE 74; RESP 20; TEMP 96.8; O2SAT 94
[2017-07-29 16:00] VITALS: BP 150/67; PULSE 75; RESP 20; TEMP 97.1; O2SAT 96
== END 2017-07-29 18:23 | DRG 956 ==
LOC: NEPD 19:17 → NEDA 20:59 → N06B 22:31
PROVIDERS: ADMIT Hospitalist; ATTEND Hospitalist
PROC: 0PSL04Z Reposition Left Ulna with Internal Fixation Device, Open Approach (ICD-10-PCS; 2017-07-26)
PROC: 3E0T3BZ Introduction of Anesthetic Agent into Peripheral Nerves and Plexi, Percutaneous Approach (ICD-10-PCS; 2017-07-26)
PROC: 0QS606Z Reposition Right Upper Femur with Intramedullary Internal Fixation Device, Open Approach (ICD-10-PCS; principal; 2017-07-27 07:29)
DX: S72.141A Displaced intertrochanteric fracture of right femur, initial encounter for closed fracture (principal); S32.592A Other specified fracture of left pubis, initial encounter for closed fracture; E11.9 Type 2 diabetes mellitus without complications; S52.022A Displaced fracture of olecranon process without intraarticular extension of left ulna, initial encounter for closed fracture; I10 Essential (primary) hypertension; W10.8XXA Fall (on) (from) other stairs and steps, initial encounter; Z87.891 Personal history of nicotine dependence; Y92.008 Other place in unspecified non-institutional (private) residence as the place of occurrence of the external cause; E78.00 Pure hypercholesterolemia, unspecified; Y93.01 Activity, walking, marching and hiking
CPT/HCPCS: 73502; 76000; 80048; 80053; 82306; 82948; 85014; 85018; 85025; 85610; 85730; 86850; 86900; 86901; 93005; 94150; J0690; J1580; J1650; J1815; J2270; J2405; J3370; J7030; J7050

== ENCOUNTER 2017-08-26 13:11 | Inpatient (IN) | payer OTHER, MEDICARE ==
[~2017-08-26] VITALS: Ht 165.1 cm; Wt 62.4 kg
[2017-08-26] VITALS (7 sets, daily range): BP systolic 118–133; BP diastolic 54–60; PULSE 55–89; RESP 16–18; TEMP 97.6–98.4; O2SAT 97–100
[~2017-08-26 13:11] MED LIST changes: +ASPI-183 PO; -BISA10R PR; +CALC1TAB12 PO; +CALCTAB19 PO; -ENOX40P SQ; -HYDR-3535 PO; +METF500T PO; +NORC5TAB PO; -PERI8.6T PO; +WALKER/ADULT/FO1 MIS; +XARE10TA PO; -Z.0.WALKERFRONT
[2017-08-26] MEDS ORDERED: ONDANSETRON HCL 4 MG/2 ML VIAL IV PUSH ONE (13:30)
--- NOTE | 2017-08-26 13:34 | PD ---
HPI Chief Complaint: GI Complaint Time Seen by Provider: 13:26 Travel History International Travel<30 days: No Contact w/Intl Traveler<30days: No Traveled to known affect area: No History of Present Illness HPI 82 y/o female presents with vomiting and diarrhea and nonproductive cough over the past couple days. She states she just got discharged from the hospital after a hip fracture repair. She denies any specific sick contacts. She denies any fever or abdominal pain or other concurrent complaints. She states she's had a couple episodes of vomiting each day and the diarrhea is almost nonstop. She denies any blood in either. She denies taking any antibiotics. Duration is couple of days. PFSH Past Medical History Arthritis: Yes Blood Disorders: No Depression: Yes Heart Rhythm Problems: No Cancer: No Cardiovascular Problems: No High Cholesterol: No Chest Pain: No Congestive Heart Failure: No Cerebrovascular Accident: No Diabetes: Yes Patient Takes Glucophage: Yes Diminished Hearing: No Endocrine: Yes Gastrointestinal Disorders: No GERD: No Genitourinary: No Headaches: No Hepatitis: No Hiatal Hernia: No Hypertension: No Immune Disorder: No Implanted Vascular Access Dvce: No Medical other: Yes (HYPERCHOLESTEROLEMIA) Musculoskeletal: Yes (PELVIC FRACTURE 05/18/16) Neurologic: No Psychiatric: Yes Reproductive: Yes Respiratory: No Migraines: No Seizures: No Thyroid Disease: No Ulcer: No ?: Not Past Surgical History Abdominal Surgery: No Cardiac Surgery: No Section: Yes Ear Surgery: No Endocrine Surgery: No Eye Surgery: Yes (kirk cataracts) Genitourinary Surgery: No Gynecologic Surgery: No Neurologic Surgery: No Oral Surgery: No Pacemaker: No Thoracic Surgery: No Other Surgery: Yes Social History Alcohol Use: Yes (1 DAILY) Tobacco Use: No (quit 30 years ago ) Substance Use: No Allergies-Medications (Allergen,Severity, Reaction): Coded Allergies: No Known Allergies (Verified Allergy, Unknown, 08/26/17) Reported Meds & Prescriptions Reported Meds & Active Scripts Active Reported Metformin (Metformin HCl) 500 Mg Tab 500 Mg PO DAILY With a meal Review of Systems Except as stated in HPI: all other systems reviewed are Neg Physical Exam Narrative GENERAL: Well-nourished, well-developed patient. On commode SKIN: Warm and dry. HEAD: Normocephalic and atraumatic. EYES: No injection or drainage. ENT: No nasal drainage noted. NECK: Supple, trachea midline. CARDIOVASCULAR: Regular rate and rhythm RESPIRATORY: Breath sounds equal bilaterally. No accessory muscle use. GASTROINTESTINAL: Abdomen soft, non-tender, nondistended. EXTREMITIES: No edema. NEUROLOGICAL: Awake and alert. Moves all extremities and sensory grossly within normal limits. Normal speech. Data Data Last Documented VS Vital Signs Date Time Temp Pulse Resp B/P (MAP) Pulse Ox O2 Delivery O2 Flow Rate FiO2 08/26/17 15:05 55 16 118/57 (77) 100 Room Air 08/26/17 13:33 97.6 Orders Orders Magnesium (Mg) (08/26/17 13:30) Phosphorus (Po4) (08/26/17 13:30) Complete Blood Count With Diff (08/26/17 13:30) Comprehensive Metabolic Panel (08/26/17 13:30) Chest, Single Ap (08/26/17 ) Iv Access Insert/Monitor (08/26/17 13:30) Ecg Monitoring (08/26/17 13:30) Oximetry (08/26/17 13:30) Ondansetron Inj (Zofran Inj) (08/26/17 13:30) Influenzae A/B Antigen (08/26/17 13:30) Sodium Chlorid 0.9% 500 Ml Inj (Ns 500 M (08/26/17 14:15) Place In Observation (08/26/17 ) Vital Signs (Adult) Q4H (08/26/17 14:21) Activity Oob With Assistance (08/26/17 14:21) Manager Heart / Telemetry .CONTINUOUS (08/26/17 14:21) Diet Regular Basic (08/26/17 Dinner) Sodium Chlor 0.9% 1000 Ml Inj (Ns 1000 M (08/26/17 16:00) Sodium Chloride 0.9% Flush (Ns Flush) (08/26/17 14:30) Sodium Chloride 0.9% Flush (Ns Flush) (08/26/17 21:00) Acetaminophen (Tylenol) (08/26/17 16:00) Ondansetron Inj (Zofran Inj) (08/26/17 16:00) Temazepam (Restoril) (08/26/17 16:00) Basic Metabolic Panel (Bmp) (08/27/17 06:00) Complete Blood Count With Diff (08/27/17 06:00) Resp Oxygen Scott C Titrat 1-4 L (08/26/17 ) Pt Request For Service (08/26/17 14:21) Case Management Consult (08/26/17 14:21) Enoxaparin Inj (Lovenox Inj) (08/26/17 16:00) Scd Bilateral/Knee High MARIA ESTHER.BID (08/26/17 14:21) Ish Bilateral/Knee High MARIA ESTHER.QSHIFT (08/26/17 14:21) Naloxone Inj (Narcan Inj) (08/26/17 14:30) Docusate Sodium-Senna (Jazmyne-Colace) (08/26/17 21:00) Magnesium Hydroxide Liq (Milk Of Magnesi (08/26/17 15:00) Sennosides (Senokot) (08/26/17 15:00) Bisacodyl Supp (Dulcolax Supp) (08/26/17 16:00) Lactulose Liq (Lactulose Liq) (08/26/17 16:00) Bedside Glucose MARIA ESTHER.CSUGAR (08/26/17 14:28) Blood Glucose Goal (Criteria) (08/26/17 14:28) Hypoglycemia 70 Mg/Dl Or < (08/26/17 14:28) Notify Dr: Other (08/26/17 14:28) Dextrose 50% In Jamir (Vial) Inj (D50w (Vi (08/26/17 14:30) Glucagon Inj (Glucagon Inj) (08/26/17 14:30) Insulin Aspart Supplemtl Scale (Novolog (08/26/17 17:00) Potassium Chloride (Kcl) (08/26/17 16:00) Admit Order (Ed Use Only) (08/26/17 15:16) Labs Laboratory Tests Test 08/26/17 13:37 White Blood Count 5.8 TH/MM3 Red Blood Count 4.07 MIL/MM3 Hemoglobin 10.9 GM/DL Hematocrit 34.0 % Mean Corpuscular Volume 83.6 FL Mean Corpuscular Hemoglobin 26.7 PG Mean Corpuscular Hemoglobin Concent 32.0 % Red Cell Distribution Width 11.9 % Platelet Count 315 TH/MM3 Mean Platelet Volume 7.0 FL Neutrophils (%) (Auto) 75.0 % Lymphocytes (%) (Auto) 17.4 % Monocytes (%) (Auto) 6.2 % Eosinophils (%) (Auto) 1.0 % Basophils (%) (Auto) 0.4 % Neutrophils # (Auto) 4.3 TH/MM3 Lymphocytes # (Auto) 1.0 TH/MM3 Monocytes # (Auto) 0.4 TH/MM3 Eosinophils # (Auto) 0.1 TH/MM3 Basophils # (Auto) 0.0 TH/MM3 CBC Comment DIFF FINAL Differential Comment Blood Urea Nitrogen 10 MG/DL Creatinine 0.69 MG/DL Random Glucose 125 MG/DL Total Protein 7.3 GM/DL Albumin 3.6 GM/DL Calcium Level 8.5 MG/DL Phosphorus Level 2.5 MG/DL Magnesium Level 1.7 MG/DL Alkaline Phosphatase 82 U/L Aspartate Amino Transf (AST/SGOT) 10 U/L Alanine Aminotransferase (ALT/SGPT) 15 U/L Total Bilirubin 0.5 MG/DL Sodium Level 124 MEQ/L Potassium Level 3.4 MEQ/L Chloride Level 91 MEQ/L Carbon Dioxide Level 25.4 MEQ/L Anion Gap 8 MEQ/L Estimat Glomerular Filtration Rate 82 ML/MIN MDM Medical Decision Making Medical Screen Exam Complete: Yes Emergency Medical Condition: Yes Medical Record Reviewed: Yes (past history confirmed) Interpretation(s) CBC & BMP Diagram 08/26/17 13:37 Total Protein 7.3, Albumin 3.6, Calcium Level 8.5, Phosphorus Level 2.5, Magnesium Level 1.7, Alkaline Phosphatase 82, Aspartate Amino Transf (AST/SGOT) 10 L, Alanine Aminotransferase (ALT/SGPT) 15, Total Bilirubin 0.5 cxr no acute Differential Diagnosis Gastroenteritis, dehydration, pneumonia, URI Narrative Course Will check blood work, chest x-ray, influenza and dose with Zofran and reevaluate Lab shows critical hyponatremia which is likely related to dehydration. We'll give IV fluids slowly and admit to medicine, patient updated and agrees to plan Physician Communication Physician Communication dr salcedo agrees to admit Diagnosis Primary Impression: Hyponatremia Additional Impressions: Vomiting and diarrhea Cough Admitting Information Admitting Physician Requests: Observation Sneha Farris MD Aug 26, 2017 13:34
[2017-08-26 13:40] LABS: AUTOMATED NEUTROPHIL # 4.3 TH/MM3 (1.8-7.7); BASOPHIL % 0.4 % (0.0-2.0); EOSINOPHIL # 0.1 TH/MM3 (0-0.4); HEMOGLOBIN 10.9 GM/DL (11.6-15.3); LYMPH % 17.4 % (9.0-44.0); MEAN CELL VOLUME 83.6 FL (80.0-100.0); MEAN CORPUSCULAR HEMOGLOBIN 26.7 PG (27.0-34.0); MONO % 6.2 % (0.0-8.0); MONOCYTE # 0.4 TH/MM3 (0-0.9); PLATELET COUNT 315 TH/MM3 (150-450); RED BLOOD COUNT 4.07 MIL/MM3 (4.00-5.30); RED CELL DISTRIBUTION WIDTH 11.9 % (11.6-17.2); WHITE BLOOD COUNT 5.8 TH/MM3 (4.0-11.0)
[2017-08-26 14:00] LABS: ALBUMIN 3.6 GM/DL (3.4-5.0); BICARBONATE 25.4 MEQ/L (21.0-32.0); BLOOD UREA NITROGEN 10 MG/DL (7-18); CALCIUM 8.5 MG/DL (8.5-10.1); CHLORIDE 91 MEQ/L (98-107); GLUCOSE,RANDOM 125 MG/DL (74-106); MAGNESIUM 1.7 MG/DL (1.5-2.5)
[2017-08-26 14:04] LABS: SODIUM (NA) 124 MEQ/L (136-145)
[2017-08-26 14:08] LABS: ALKALINE PHOSPHATASE 82 U/L (45-117); ALT (GPT) 15 U/L (10-53); AST (GOT) 10 U/L (15-37); CREATININE 0.69 MG/DL (0.50-1.00); GLOMERULAR FILTRATION RATE 82 ML/MIN (>89); PHOSPHORUS 2.5 MG/DL (2.5-4.9); TOTAL BILIRUBIN ADULT 0.5 MG/DL (0.2-1.0); TOTAL PROTEIN 7.3 GM/DL (6.4-8.2)
[2017-08-26] MEDS ORDERED: SODIUM CHLORID 0.9% 500 ML INJ 500 ML IV ONE (14:15)
[2017-08-26] MEDS ORDERED: DEXTROSE 50% IN WATER 50 ML VIAL(D50) IV PUSH PRN (14:30)
[2017-08-26] MEDS ORDERED: NALOXONE HCL 0.4 MG/ML AMP IV PUSH PRN (14:30)
[2017-08-26] MEDS ORDERED: GLUCAGON 1 MG/ML VIAL OTHER PRN (14:30)
[2017-08-26] MEDS ORDERED: SODIUM CHLORIDE 0.9% FLUSH 10 ML FLUSH IV FLUSH PRN (14:30)
--- NOTE | 2017-08-26 14:30 | HHI.HP ---
HPI Service [facility] Primary [facility] Physician Lang Freire MD Admission Diagnosis Diagnoses: Chief Complaint: weakness, abd cramps , nausea Travel History International Travel<30 Days: No Contact w/Intl Traveler <30 Da: No Traveled to Known Affected Are: No History of Present Illness 82 y/o female with PMH of DM2, presents with vomiting and diarrhea and nonproductive cough over the past couple days. She states she just got discharged from the hospital after a hip fracture repair. She denies any specific sick contacts. She denies any fever or abdominal pain or other concurrent complaints. She states she's had a couple episodes of vomiting each day and the diarrhea is almost nonstop. She denies any blood in either. She denies taking any antibiotics. Duration is couple of days. Patient says she has diarrhea starting today. She is also coughing more. No fevr or chills. Has decreased appetite and says she was not able to eat much while in the hospital or at home. Review of Systems Except as stated in HPI: all other systems reviewed are Neg Past Family Social History Past Medical History DM2 Past Surgical History Right hip replacement Reported Medications Reported Meds & Active Scripts Active Reported Metformin (Metformin HCl) 500 Mg Tab 500 Mg PO DAILY With a meal Allergies: Coded Allergies: No Known Allergies (Verified Allergy, Unknown, 08/26/17) Family History Father diabetes at old age Mother healthy of old age at 95 ya Social History No EtOH , tobacco or illicit drug use Physical Exam Vital Signs Vital Signs Date Time Temp Pulse Resp B/P (MAP) Pulse Ox O2 Delivery O2 Flow Rate FiO2 08/26/17 13:33 97.6 70 18 119/57 (77) 99 08/26/17 13:32 18 99 Room Air Physical Exam GENERAL: This is a well-nourished, well-developed patient, in no apparent distress. SKIN: No rashes, ecchymoses or lesions. Cool and dry. HEAD: Atraumatic. Normocephalic. No temporal or scalp tenderness. EYES: Pupils equal round and reactive. Extraocular motions intact. No scleral icterus. No injection or drainage. ENT: Nose without bleeding, purulent drainage or septal hematoma. Throat without erythema, tonsillar hypertrophy or exudate. Uvula midline. Airway patent. NECK: Trachea midline. No JVD or lymphadenopathy. Supple, nontender, no meningeal signs. CARDIOVASCULAR: Regular rate and rhythm without murmurs, gallops, or rubs. RESPIRATORY: Clear to auscultation. Breath sounds equal bilaterally. No wheezes , rales, or rhonchi. GASTROINTESTINAL: Abdomen soft, non-tender, nondistended. No hepato-splenomegaly , or palpable masses. No guarding. MUSCULOSKELETAL: Extremities without clubbing, cyanosis, or edema. No joint tenderness, effusion, or edema noted. No calf tenderness. Negative Homans sign bilaterally. NEUROLOGICAL: Awake and alert. Cranial nerves II through XII intact. Motor and sensory grossly within normal limits. Five out of 5 muscle strength in all muscle groups. Normal speech. Laboratory Laboratory Tests Test 08/26/17 13:37 White Blood Count 5.8 Red Blood Count 4.07 Hemoglobin 10.9 Hematocrit 34.0 Mean Corpuscular Volume 83.6 Mean Corpuscular Hemoglobin 26.7 Mean Corpuscular Hemoglobin Concent 32.0 Red Cell Distribution Width 11.9 Platelet Count 315 Mean Platelet Volume 7.0 Neutrophils (%) (Auto) 75.0 Lymphocytes (%) (Auto) 17.4 Monocytes (%) (Auto) 6.2 Eosinophils (%) (Auto) 1.0 Basophils (%) (Auto) 0.4 Neutrophils # (Auto) 4.3 Lymphocytes # (Auto) 1.0 Monocytes # (Auto) 0.4 Eosinophils # (Auto) 0.1 Basophils # (Auto) 0.0 CBC Comment DIFF FINAL Differential Comment Blood Urea Nitrogen 10 Creatinine 0.69 Random Glucose 125 Total Protein 7.3 Albumin 3.6 Calcium Level 8.5 Phosphorus Level 2.5 Magnesium Level 1.7 Alkaline Phosphatase 82 Aspartate Amino Transf (AST/SGOT) 10 Alanine Aminotransferase (ALT/SGPT) 15 Total Bilirubin 0.5 Sodium Level 124 Potassium Level 3.4 Chloride Level 91 Carbon Dioxide Level 25.4 Anion Gap 8 Estimat Glomerular Filtration Rate 82 Date/Time Source Procedure Growth Status 08/26/17 13:30 Nasal Aspirate Influenza Types A,B Antigen (YARITZA) - Final NEGATIVE FOR FLU A AND B ANTIGEN.... Complete Result Diagram: 08/26/17 1337 08/26/17 1337 Imaging Last Impressions Chest X-Ray 08/26/17 0000 Signed Impressions: Service Date/Time: Saturday, August 26, 2017 14:11 - CONCLUSION: No acute disease. Ru Hewitt MD FACR Tere VTE Risk Assessment Capleannai VTE Risk Assessment: Mod/High Risk (score >= 2) Caprini Risk Assessment Model Point Value = 1 Point Value = 2 Point Value = 3 Point Value = 5 Age 41-60 Minor surgery BMI > 25 kg/m2 Swollen legs Varicose veins or History of unexplained or recurrent spontaneous Oral contraceptives or hormone replacement Sepsis (< 1 month) Serious lung disease, including pneumonia (< 1 month) Abnormal pulmonary function Acute myocardial infarction Congestive heart failure (< 1 month) History of inflammatory bowel disease Medical patient at bed rest Age 61-74 Arthroscopic surgery Major open surgery (> 45 min) Laparoscopic surgery (> 45 min) Malignancy Confined to bed (> 72 hours) Immobilizing plaster cast Central venous access Age >= 75 History of VTE Family history of VTE Factor V Leiden Prothrombin [id number] Lupus anticoagulant Anticardiolipin antibodies Elevated serum homocysteine Heparin-induced thrombocytopenia Other congenital or acquired thrombophilia Stroke (< 1 month) Elective arthroplasty Hip, pelvis, or leg fracture Acute spinal cord injury (< 1 month) Prophylaxis Regimen Total Risk Factor Score Risk Level Prophylaxis Regimen 0-1 Low Early ambulation 2 Moderate Order ONE of the following: *Sequential Compression Device (SCD) *Heparin 5000 units SQ BID 3-4 Higher Order ONE of the following medications: *Heparin 5000 units SQ TID *Enoxaparin/Lovenox 40 mg SQ daily (WT < 150 kg, CrCl > 30 mL/min) *Enoxaparin/Lovenox 30 mg SQ daily (WT < 150 kg, CrCl > 10-29 mL/min) *Enoxaparin/Lovenox 30 mg SQ BID (WT < 150 kg, CrCl > 30 mL/min) AND/OR *Sequential Compression Device (SCD) 5 or more Highest Order ONE of the following medications: *Heparin 5000 units SQ TID (Preferred with Epidurals) *Enoxaparin/Lovenox 40 mg SQ daily (WT < 150 kg, CrCl > 30 mL/min) *Enoxaparin/Lovenox 30 mg SQ daily (WT < 150 kg, CrCl > 10-29 mL/min) *Enoxaparin/Lovenox 30 mg SQ BID (WT < 150 kg, CrCl > 30 mL/min) AND *Sequential Compression Device (SCD) Assessment and Plan Assessment and Plan Pleasant 82 yo F with Decreased appetite Hyponatremia due to decreased PO intake. Na of 124 on admission S/P Recent Right hip replacement DM2 Cough, CXR is normal. Start mucinex Start IVF NS and recheck Na levels Antiemetics as need MVT for appetite , add ensure to regular diet ISS, accuchecks , hold metformin DVT ppx SCD/teds/ lovenox Jayashree Odonnell MD Aug 26, 2017 14:30
[2017-08-26] MEDS ORDERED: MAGNESIUM HYDROXIDE SUSP 30 ML CUP PO PRN (15:00)
[2017-08-26] MEDS ORDERED: SENNOSIDES 8.6 MG TAB PO PRN (15:00)
--- NOTE | 2017-08-26 15:12 | RADRPT ---
EXAM DATE/TIME: 08/26/2017 14:11 [facility] COMPARISON: CHEST SINGLE AP, May 18, 2016, 6:06. INDICATIONS : Short of breath MEDICAL HISTORY : None. SURGICAL HISTORY : None. ENCOUNTER: Initial ACUITY: 1 day PAIN SCORE: 0/10 LOCATION: Bilateral chest FINDINGS: A single view of the chest demonstrates the lungs to be symmetrically aerated without evidence of mas s, infiltrate or effusion. The cardiomediastinal contours are unremarkable. Osseous structures are intact. CONCLUSION: No acute disease. Ru Hewitt MD FACR on August 26, 2017 at 15:10 Board Certified Radiologist. This report was verified electronically.
[2017-08-26] MEDS ORDERED: ONDANSETRON HCL 4 MG/2 ML VIAL IVP PRN (16:00)
[2017-08-26] MEDS ORDERED: POTASSIUM CHLORIDE 10 MEQ CONTROLLED RELEASE TAB PO ONE (16:00)
[2017-08-26] MEDS ORDERED: LACTULOSE SYRUP 20 GM/30 ML CUP PO PRN (16:00)
[2017-08-26] MEDS ORDERED: ENOXAPARIN SODIUM 40 MG/0.4 ML SYRINGE SQ SCH (16:00)
[2017-08-26] MEDS ORDERED: BISACODYL 10 MG SUPP RECTAL PRN (16:00)
[2017-08-26] MEDS ORDERED: TEMAZEPAM 15 MG CAP PO PRN (16:00)
[2017-08-26] MEDS ORDERED: ACETAMINOPHEN 325 MG TAB PO PRN (16:00)
[2017-08-26] MEDS: SODIUM CHLOR 0.9% 1000 ML INJ 1,000 ML IV SCH (16:07)
[2017-08-26] MEDS ORDERED: MULTIVITAMIN TAB PO ONE (17:00)
[2017-08-26] MEDS: INSULIN ASPART SUPPLEMENTAL SCALE SQ SCH ×2 (17:00→21:00)
[2017-08-26] MEDS: DOCUSATE SODIUM 50 MG/SENNA 8.6 MG TAB PO SCH (21:00)
[2017-08-26] MEDS: SODIUM CHLORIDE 0.9% FLUSH 10 ML FLUSH IV FLUSH SCH (21:00)
[2017-08-26] MEDS: guaiFENesin E.R. 600 MG TAB PO SCH (21:32)
[2017-08-27] VITALS: BP 128/60; PULSE 60; RESP 16; TEMP 97.4; O2SAT 98
[2017-08-27] MEDS: SODIUM CHLOR 0.9% 1000 ML INJ 1,000 ML IV SCH ×2 (00:40→09:17)
[2017-08-27 05:48] VITALS: O2SAT 98
[2017-08-27 06:53] VITALS: BP 128/60; PULSE 60; RESP 16; TEMP 97.4; O2SAT 98
[2017-08-27 08:00] VITALS: BP 120/64; PULSE 60; RESP 19; TEMP 97.6; O2SAT 97
[2017-08-27] MEDS: INSULIN ASPART SUPPLEMENTAL SCALE SQ SCH (08:00)
--- NOTE | 2017-08-27 08:29 | HHI.PR ---
Objective Vitals Vital Signs Date Time Temp Pulse Resp B/P (MAP) Pulse Ox O2 Delivery O2 Flow Rate FiO2 08/27/17 06:53 97.4 60 16 128/60 (82) 98 08/27/17 05:48 98 08/27/17 00:00 97.4 60 16 128/60 (82) 98 08/26/17 22:08 61 08/26/17 21:00 89 08/26/17 20:11 08/26/17 20:00 97.8 63 18 133/60 (84) 98 08/26/17 19:13 98.4 64 16 126/54 (78) 97 Room Air 08/26/17 15:05 55 16 118/57 (77) 100 Room Air 08/26/17 13:33 97.6 70 18 119/57 (77) 99 08/26/17 13:32 18 99 Room Air I/O 08/26/17 08/26/17 08/26/17 08/27/17 08/27/17 08/27/17 07:00 15:00 23:00 07:00 15:00 23:00 Intake Total 500 ml 320 ml Balance 500 ml 320 ml Intake Oral 320 ml IV Total 500 ml # Voids 2 # Bowel Movements 0 Result Diagram: 08/26/17 1337 08/26/17 1337 Breanne Fabian Aug 27, 2017 08:29
[2017-08-27] MEDS ORDERED: MULTIVITAMIN TAB PO SCH (09:00)
[2017-08-27] MEDS: DOCUSATE SODIUM 50 MG/SENNA 8.6 MG TAB PO SCH (09:00)
[2017-08-27] MEDS: guaiFENesin E.R. 600 MG TAB PO SCH (09:17)
[2017-08-27] MEDS: SODIUM CHLORIDE 0.9% FLUSH 10 ML FLUSH IV FLUSH SCH (09:17)
[2017-08-27 09:18] LABS: AUTOMATED NEUTROPHIL # 2.4 TH/MM3 (1.8-7.7); BASOPHIL % 0.5 % (0.0-2.0); EOSINOPHIL # 0.1 TH/MM3 (0-0.4); EOSINOPHIL % 2.2 % (0.0-4.0); HEMOGLOBIN 10.1 GM/DL (11.6-15.3); LYMPH % 23.7 % (9.0-44.0); LYMPHOCYTE # 0.9 TH/MM3 (1.0-4.8); MEAN CORPUSCULAR HEMOGLOBIN 27.6 PG (27.0-34.0); MEAN CORPUSCULAR HGB CONC 32.5 % (32.0-36.0); MEAN PLATELET VOLUME 6.9 FL (7.0-11.0); MONO % 8.1 % (0.0-8.0); MONOCYTE # 0.3 TH/MM3 (0-0.9); NEUT % 65.5 % (16.0-70.0); PLATELET COUNT 271 TH/MM3 (150-450); RED BLOOD COUNT 3.65 MIL/MM3 (4.00-5.30); RED CELL DISTRIBUTION WIDTH 12.4 % (11.6-17.2); WHITE BLOOD COUNT 3.7 TH/MM3 (4.0-11.0)
--- NOTE | 2017-08-27 09:32 | HHI.PR ---
Subjective Remarks Feels much better. Mentation at baseline, back to normal. nO fever or chills. nO n/v/d/c. Eating well. ate all breakfast Objective Vitals Vital Signs Date Time Temp Pulse Resp B/P (MAP) Pulse Ox O2 Delivery O2 Flow Rate FiO2 08/27/17 08:00 97.6 60 19 120/64 (82) 97 08/27/17 06:53 97.4 60 16 128/60 (82) 98 08/27/17 05:48 98 08/27/17 00:00 97.4 60 16 128/60 (82) 98 08/26/17 22:08 61 08/26/17 21:00 89 08/26/17 20:11 08/26/17 20:00 97.8 63 18 133/60 (84) 98 08/26/17 19:13 98.4 64 16 126/54 (78) 97 Room Air 08/26/17 15:05 55 16 118/57 (77) 100 Room Air 08/26/17 13:33 97.6 70 18 119/57 (77) 99 08/26/17 13:32 18 99 Room Air I/O 08/26/17 08/26/17 08/26/17 08/27/17 08/27/17 08/27/17 07:00 15:00 23:00 07:00 15:00 23:00 Intake Total 500 ml 320 ml Balance 500 ml 320 ml Intake Oral 320 ml IV Total 500 ml # Voids 2 # Bowel Movements 0 Result Diagram: 08/27/17 0900 08/26/17 1337 Imaging Last Impressions Chest X-Ray 08/26/17 0000 Signed Impressions: Service Date/Time: Saturday, August 26, 2017 14:11 - CONCLUSION: No acute disease. Ru Hewitt MD FACR Objective Remarks GENERAL: This is a well-nourished, well-developed patient, in no apparent distress. CARDIOVASCULAR: Regular rate and rhythm without murmurs, gallops, or rubs. RESPIRATORY: Clear to auscultation. Breath sounds equal bilaterally. No wheezes , rales, or rhonchi. GASTROINTESTINAL: Abdomen soft, non-tender, nondistended. No hepato-splenomegaly , or palpable masses. No guarding. MUSCULOSKELETAL: Extremities without clubbing, cyanosis, or edema. No joint tenderness, effusion, or edema noted. No calf tenderness. Negative Homans sign bilaterally. NEUROLOGICAL: Awake and alert. Cranial nerves II through XII intact. Motor and sensory grossly within normal limits. Five out of 5 muscle strength in all muscle groups. Normal speech. A/P Assessment and Plan Pleasant 82 yo F with Decreased appetite Hyponatremia due to decreased PO intake. Na of 124 on admission, received IVF NS and repeat Na is 137. Tolerats food appetite back to normal. S/P Recent Right hip replacement DM2 Cough, CXR is normal. Start mucinex Start IVF NS and recheck Na levels Antiemetics as need MVT for appetite , add ensure to regular diet ISS, accuchecks , hold metformin DVT ppx SCD/teds/ lovenox Na back to normal, no confusion, imprpved significantly faster than expected. Tolerates food appetite back to normal. DC home Discharge Planning DC home in [facility] to follow up as OP with pCP and consultants. Diet regular diet as tolerated Activity ad royce as tolerated Meds per med reconciliations Time spent at discharge > 30 minutes Jayashree Odonnell MD Aug 27, 2017 09:32
[2017-08-27 09:48] VITALS: PULSE 61
[2017-08-27 10:16] LABS: BICARBONATE 25.8 MEQ/L (21.0-32.0); CALCIUM 8.4 MG/DL (8.5-10.1); CREATININE 0.67 MG/DL (0.50-1.00)
--- NOTE | 2017-08-27 10:22 | HHI.DCPOC ---
Discharge Care Plan Goals to Promote Your Health * To prevent worsening of your condition and complications * To maintain your health at the optimal level Directions to Meet Your Goals Take your medications as prescribed Follow your dietary instruction Follow activity as directed Keep your appointments as scheduled Take your immunizations and boosters as scheduled If your symptoms worsen call your PCP, if no PCP go to Urgent Care Center or Emergency Room Smoking is Dangerous to Your Health. Avoid second hand smoke Call the 24-hour hour crisis hotline for domestic abuse at Jayashree Odonnell MD Aug 27, 2017 10:22
== END 2017-08-27 12:06 | disposition home or self-care (01) | DRG 641 ==
LOC: PHED 13:11 → PHEDA 15:17 → UNDOADMOB 15:17 → PHEDA 15:58 → OBSVTOIN 15:58 → PH3A 20:21
PROVIDERS: ADMIT Hospitalist; ATTEND Hospitalist
DX: E87.1 Hypo-osmolality and hyponatremia (principal); E86.0 Dehydration; E11.9 Type 2 diabetes mellitus without complications; Z96.641 Presence of right artificial hip joint; E78.00 Pure hypercholesterolemia, unspecified; R05 Cough; R11.2 Nausea with vomiting, unspecified; R19.7 Diarrhea, unspecified; M19.90 Unspecified osteoarthritis, unspecified site; F32.9 Major depressive disorder, single episode, unspecified; R10.9 Unspecified abdominal pain; Z79.84 Long term (current) use of oral hypoglycemic drugs
CPT/HCPCS: 71045; 80048; 80053; 82948; 83735; 84100; 85025; 87804; J1650; J2405; J7030; J7040

== ENCOUNTER 2017-11-18 12:38 | Emergency (ER) | payer OTHER ==
[~2017-11-18] VITALS: Ht 165.1 cm; Wt 61.2 kg
[~2017-11-18 12:38] MED LIST changes: -ASPI-183 PO; -CALC1TAB12 PO; -CALCTAB19 PO; -NORC5TAB PO; -WALKER/ADULT/FO1 MIS; -XARE10TA PO
[2017-11-18 13:02] VITALS: BP 136/63; PULSE 62; RESP 16; TEMP 97.6; O2SAT 99
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
== END 2017-11-18 14:37 | disposition home or self-care (01) ==
LOC: PHEFT 12:38
DX: S16.1XXA Strain of muscle, fascia and tendon at neck level, initial encounter (principal); M47.9 Spondylosis, unspecified; M19.90 Unspecified osteoarthritis, unspecified site; F32.9 Major depressive disorder, single episode, unspecified; E11.9 Type 2 diabetes mellitus without complications; V43.52XA Car driver injured in collision with other type car in traffic accident, initial encounter; Z87.891 Personal history of nicotine dependence; Z79.899 Other long term (current) drug therapy
CPT/HCPCS: 72125; 99283